=== PATIENT | male | born 1990 | race Two or more races ===

== ENCOUNTER 2020-05-29 12:24 | Outpatient (REF) | payer MEDICAID, SELFPAY | END 2020-05-29 12:25 | disposition home or self-care (01) | LOC: HO.LAB 12:24 | PROVIDERS: PCP Internal Medicine; Visit Provider Internal Medicine | DX: Z20.828 Contact with and (suspected) exposure to other viral communicable diseases (principal) | CPT/HCPCS: C9803; U0003 ==

== ENCOUNTER 2020-09-20 16:28 | Emergency (ER) | payer MEDICAID, SELFPAY ==
--- NOTE | ~2020-09-20 | XR_ITS ---
EXAMINATION: XR CHEST CLINICAL INFORMATION: Right chest pain with inspiration COMPARISON: 02/18/2020 TECHNIQUE: Frontal view of the chest was obtained. FINDINGS: No significant abnormality is noted involving the heart, lungs, mediastinum, bony thorax or soft tissues. XR/XR chest 1V IMPRESSION: No acute cardiopulmonary process.
[2020-09-20 16:49] VITALS: BP 128/77; PULSE 74; RESP 14; TEMP 36.9; O2SAT 97; BMI 23.6
--- NOTE | 2020-09-20 17:45 | ED.CHESTPAIN ---
HPI - Chest Pain General Chief Complaint: Chest Pain Stated Complaint: Rib pain Time Seen by Provider: 09/20/20 17:08 Source: patient Mode of arrival: ambulatory Limitations: no limitations History of Present Illness HPI narrative: Patient comes emergency room complaining of 2 days of sharp right-sided chest pain with inspirations. Patient is known to have asthma exacerbations, states he has been using his albuterol, no prednisone. Patient denies any recent injury, states that he has no pain with movement, only inspirations. Related Data Home Medications Medication Instructions Recorded Confirmed albuterol sulfate [ProAir HFA] 2 puff INHALATION Q4H 09/20/20 09/20/20 cetirizine 1 tab PO BEDTIME 09/20/20 09/20/20 clobetasol TOPICAL BID 09/20/20 epinephrine 1 IM NEEDED 09/20/20 fluticasone propionate 1 spray INTRANASAL DAILY 09/20/20 09/20/20 fluticasone propionate [Flovent 2 puff PO DAILY 09/20/20 09/20/20 Diskus] hydroxyzine HCl 1 tab PO TID 09/20/20 09/20/20 Allergies Allergy/AdvReac Type Severity Reaction Status Date / Time SEAFOOD Allergy Unknown ANAPHYLAXIS Uncoded 03/07/20 16:12 seafood Allergy Unknown anaphylaxis Uncoded 07/20/17 00:00 Review of Systems Review of Systems: Constitutional : No Weight loss, No Fever, No Chills, No Night Sweats, No Fatigue, No Malaise ENT/Mouth : No Hearing loss, No Ear Pain, No Nasal Congestion, No Sinus Pain, No Hoarseness, No sore throat, No Rhinorrhea, No Swallowing Difficulty Eyes: No Eye Pain, No Swelling, No Redness, No Foreign Body, No Discharge, No Vision Changes Cardiovascular : Sharp right-sided chest pain and intermittent, No SOB, No Dyspnea on Exertion, No Orthopnea, No Edema, No Palpitations Respiratory : No Cough, No Sputum, recent frequent asthma exacerbations, No Smoke Exposure, No Dyspnea Gastrointestinal : No Nausea, No Vomiting, No Diarrhea, No Constipation, No abdominal Pain, No Hematochezia, No Melena Genitourinary : no irregular bleeding, No Dysuria, No Urinary Frequency, No Hematuria, No Urinary Incontinence, No Urgency, No Flank Pain, No Urinary Flow Changes, No Hesitancy Musculoskeletal : No joint pain, No Myalgias, No Joint Swelling Skin : No Skin Lesions, No rash Neuro : No Weakness, No Numbness, No Paresthesias, No Loss of Consciousness, No Dizziness, No Headache Psych : No Anxiety/Panic, No Depression, No SI/HI/AH/VH, No Social Issues, Heme/Lymph: No Bruising, No Bleeding,No Lymphadenopathy Endocrine : No Polyuria, No Polydipsia, No Temperature Intolerance [facility] Past Medical History Medical History Asthma Hernia Social History Social History Smoked in Last 30 Days: No Use of substances other than those prescribed or required for medical reasons: No Advance Directives: No Advance Directives Information Provided: Yes Physical Exam Vital Signs: Vital Signs: Last Vital Signs Temp 97.8 F 09/20/20 19:27 Pulse 77 09/20/20 19:27 Resp 18 09/20/20 19:27 BP 121/82 09/20/20 19:27 Pulse Ox 99 09/20/20 19:27 Body Mass Index 23.6 Appearance: Alert. Oriented X3. No acute distress. Eyes: Pupils equal, round and reactive to light. ENT: Pharynx normal. Neck: Normal inspection. Neck supple. No lymph nodes noted. No crepitus CVS: Normal heart rate and rhythm. Pulses normal. Normal S1 and S2, no pain to palpation Respiratory: No respiratory distress. Breath sounds normal. No Wheezing. No rales Abdomen: Soft and nontender. No rigidity. No distention. good BS x4 Skin: Skin warm and dry. Normal skin color. Normal skin turgor. Extremities: No lower extremity edema. No lower extremity edema. No Lacerations. No Rash Neuro: Oriented X 3. No motor deficit. No sensory deficit. Moving all extermities. No slurred speech. Course Course Course Narrative: Patient feeling better after the IV Toradol. Patient's pain likely musculoskeletal. Heart score 0 and Wells score for PE 0 MDM - Chest Pain Lab Data Result diagrams: 09/20/20 17:44 09/20/20 17:45 Labs: Lab Results 09/20/20 09/20/20 09/20/20 Range/Units 17:44 17:45 17:45 WBC 10.5 (4.8-10.8) X10*3/uL RBC 5.25 (4.60-5.80) X10*6/uL Hgb 15.9 (14.0-18.0) g/dl Hct 44.2 (42-52) % MCV 84.2 (80-98) fL MCH 30.3 (27.0-33.0) pg MCHC 36.0 (31.0-36.0) g/dl RDW 12.2 (11.0-16.0) % Plt Count 323 (160-400) X10*3/uL MPV 8.9 L (9.4-12.4) fL Immature Gran % (Auto) 0.5 H (0.0-0.4) % Neut % (Auto) 63.7 (45-73) % Lymph % (Auto) 18.3 L (20-40) % Gordon % (Auto) 8.0 (2-11) % Eos % (Auto) 8.9 H (0-4) % Baso % (Auto) 0.6 (0-2) % Lymph # (Auto) 1.9 (1.2-4.9) X10*3/uL Gordon # (Auto) 0.8 (0.1-1.2) X10*3/uL Eos # (Auto) 0.9 H (0.0-0.4) X10*3/uL Baso # (Auto) 0.1 (0.0-0.2) X10*3/uL Abs Immat Gran (auto) 0.05 H (0.00-0.03) X10*3/uL Absolute Neuts (auto) 6.7 (2.0-8.3) X10*3/uL Absolute Nucleated RBC 0.000 (0.0-0.012) X10*3/uL Nucleated RBC % (auto) 0.0 (0.0-0.2) /100WBC D-Dimer < 200 NG/ML Sodium 138 (135-145) mmol/L Potassium 4.1 (3.3-5.1) mmol/L Chloride 104 (96-108) mmol/L Carbon Dioxide 27 (22-29) mmol/L Anion Gap 11 L (12-20) BUN 14 (9-16) mg/dL Creatinine 0.78 (0.5-1.4) mg/dL Estim Creat Clear Calc 140.9 Estimated GFR > 60 Random Glucose 84 (60-115) mg/dL Calcium 9.0 (8.4-10.2) mg/dL Troponin I High Sens (<3.5-35.0) ng/L 09/20/20 Range/Units 17:45 WBC (4.8-10.8) X10*3/uL RBC (4.60-5.80) X10*6/uL Hgb (14.0-18.0) g/dl Hct (42-52) % MCV (80-98) fL MCH (27.0-33.0) pg MCHC (31.0-36.0) g/dl RDW (11.0-16.0) % Plt Count (160-400) X10*3/uL MPV (9.4-12.4) fL Immature Gran % (Auto) (0.0-0.4) % Neut % (Auto) (45-73) % Lymph % (Auto) (20-40) % Gordon % (Auto) (2-11) % Eos % (Auto) (0-4) % Baso % (Auto) (0-2) % Lymph # (Auto) (1.2-4.9) X10*3/uL Gordon # (Auto) (0.1-1.2) X10*3/uL Eos # (Auto) (0.0-0.4) X10*3/uL Baso # (Auto) (0.0-0.2) X10*3/uL Abs Immat Gran (auto) (0.00-0.03) X10*3/uL Absolute Neuts (auto) (2.0-8.3) X10*3/uL Absolute Nucleated RBC (0.0-0.012) X10*3/uL Nucleated RBC % (auto) (0.0-0.2) /100WBC D-Dimer NG/ML Sodium (135-145) mmol/L Potassium (3.3-5.1) mmol/L Chloride (96-108) mmol/L Carbon Dioxide (22-29) mmol/L Anion Gap (12-20) BUN (9-16) mg/dL Creatinine (0.5-1.4) mg/dL Estim Creat Clear Calc Estimated GFR Random Glucose (60-115) mg/dL Calcium (8.4-10.2) mg/dL Troponin I High Sens < 3.5 (<3.5-35.0) ng/L Imaging Data Chest x-ray: Radiologist's impression: FINDINGS: No significant abnormality is noted involving the heart, lungs, mediastinum, bony thorax or soft tissues. XR/XR chest 1V IMPRESSION: No acute cardiopulmonary process. ECG Data ECG #1: Attestation: I personally reviewed and interpreted this ECG as follows: (Sinus rhythm, heart rate 73, no ST segment depression or elevation, no T-wave inversion.) Scores Heart Score History: -0- slightly suspicious ECG: -0- normal Age: -0- < or = 45 Risk factory: -0- no risk factors known Troponin: -0- < or = normal limit Score: 0 Risk: 1.7% Discharge Plan Discharge Clinical Impression: Atypical chest pain Patient Disposition: Home, Self-Care Instructions: Pleurisy (ED) Additional Instructions: You may use Tylenol or ibuprofen for the discomfort. Please follow-up with your primary care physician tomorrow. If you have any worsening or new symptoms, please return to the emergency room or call 911 Prescriptions: No Action cetirizine 10 mg tablet 1 tab PO BEDTIME RF: 0 hydroxyzine HCl 25 mg tablet 1 tab PO TID RF: 0 clobetasol 0.05 % ointment topical BID RF: 0 epinephrine 0.3 mg/0.3 mL auto-injector 1 IM NEEDED RF: 0 albuterol sulfate [ProAir HFA] 90 mcg/actuation HFA aerosol inhaler 2 puff inhalation Q4H RF: 0 Flovent Diskus 250 mcg/actuation blister with device 2 puff PO DAILY RF: 0 fluticasone propionate 50 mcg/actuation spray,suspension 1 spray intranasal DAILY RF: 0
[2020-09-20 18:03] LABS: MANUAL DIFF FLAG NO
[2020-09-20 18:06] LABS: Basophils Absolute Auto 0.1 X10*3/uL (0.0-0.2); Basophils Percent Auto 0.6 % (0-2); Eosinophils Absolute Auto 0.9 X10*3/uL (0.0-0.4); Eosinophils Percent Auto 8.9 % (0-4); Hematocrit 44.2 % (42-52); Hemoglobin 15.9 g/dl (14.0-18.0); Imm Gran Abs Auto 0.05 X10*3/uL (0.00-0.03); Imm Gran Pct Auto 0.5 % (0.0-0.4); Lymphocytes Absolute Auto 1.9 X10*3/uL (1.2-4.9); Lymphocytes Percent Auto 18.3 % (20-40); Mean Corpuscular Hemoglobin 30.3 pg (27.0-33.0); Mean Corpuscular Volume 84.2 fL (80-98); Mean Platelet Volume 8.9 fL (9.4-12.4); Monocytes Absolute Auto 0.8 X10*3/uL (0.1-1.2); Neutrophils Absolute Auto 6.7 X10*3/uL (2.0-8.3); Neutrophils Percent Auto 63.7 % (45-73); Platelet Count 323 X10*3/uL (160-400); Red Blood Count 5.25 X10*6/uL (4.60-5.80); Red Cell Distribution Width 12.2 % (11.0-16.0); White Blood Count 10.5 X10*3/uL (4.8-10.8)
[2020-09-20 18:22] LABS: D Dimer < 200 NG/ML
[2020-09-20 18:36] LABS: Anion Gap 11 (12-20); Blood Urea Nitrogen 14 mg/dL (9-16); Carbon Dioxide 27 mmol/L (22-29); Chloride 104 mmol/L (96-108); Creatinine Clr Calc Pharmacy 140.9; Estimated Glomerular Filt Rate > 60; Glucose Random 84 mg/dL (60-115); Potassium 4.1 mmol/L (3.3-5.1); Sodium 138 mmol/L (135-145)
[2020-09-20 18:39] LABS: Troponin-I High Sensitivity < 3.5 ng/L (<3.5-35.0)
[2020-09-20] MEDS: Ketorolac Tromethamine 30 MG/ML VIAL IVPUSH (19:05)
--- NOTE | 2020-09-20 19:09 | ECG_ITS ---
Test Reason : CHEST PAIN Blood Pressure : / mmHG Vent. Rate : 073 BPM Atrial Rate : 073 BPM P-R Int : 120 ms QRS Dur : 094 ms QT Int : 376 ms P-R-T Axes : 000 153 154 degrees QTc Int : 414 ms Possible limb lead reversal Normal sinus rhythm Right axis deviation Possible lateral infarct , age undetermined Abnormal ECG When compared with ECG of 12-OCT-2017 14:08, Vent. rate has decreased BY 36 BPM Borderline criteria for lateral infarct T wave inversion now evident in Lateral leads Please repeat ECG with correct lead positon Referred By: Minnie Rivera Electronically Signed By:Aaron Zelaya
[2020-09-20 19:27] VITALS: BP 121/82; PULSE 77; RESP 18; TEMP 36.6; O2SAT 99
== END 2020-09-20 20:08 | disposition home or self-care (01) ==
PROVIDERS: Emergency Provider Emergency Medicine; PCP Internal Medicine
DX: R07.89 Other chest pain (principal); J45.909 Unspecified asthma, uncomplicated; Z79.899 Other long term (current) drug therapy
CPT/HCPCS: 36415; 71045; 80048; 84484; 85025; 85379; 93005; 96374; 99284; J1885

== ENCOUNTER 2021-03-16 17:37 | Emergency (ER) | payer MEDICAID, SELFPAY ==
[2021-03-16 17:40] VITALS: BP 135/78; PULSE 95; RESP 18; TEMP 36.7; O2SAT 95; BMI 23.2
--- NOTE | 2021-03-16 18:53 | ED_ITS ---
HPI - Back Pain/Injury General Chief Complaint: Back Pain/Injury Stated Complaint: BACK PAIN Time Seen by Provider: 03/16/21 18:42 Source: patient History of Present Illness HPI Narrative: Patient states he has been having pain in his low back mostly on the right side for the past 4-5 days. He has had similar symptoms intermittently in the past which resolved spontaneously. He was referred to Physical therapy who we saw a few days ago. He was prescribed stretching and strength exercises. The pain is in his low back and does not radiate. No bowel or bladder symptoms. No fevers or chills. No specific causative factors such as slipped falls or trauma. 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 He is here today because the pain continues. He has been taking acetaminophen without much improvement. Related Data Home Medications Medication Instructions Recorded Confirmed albuterol sulfate 90 mcg/actuation 2 puff INHALATION Q4H 09/20/20 09/20/20 aerosol inhaler (ProAir HFA) cetirizine 10 mg tablet 1 tab PO BEDTIME 09/20/20 09/20/20 clobetasol 0.05 % topical ointment TOPICAL BID 09/20/20 epinephrine 0.3 mg/0.3 mL 1 IM NEEDED 09/20/20 injection, auto-injector fluticasone propionate 250 2 puff PO DAILY 09/20/20 09/20/20 mcg/actuation blister powder for inhalation (Flovent Diskus) fluticasone propionate 50 1 spray INTRANASAL DAILY 09/20/20 09/20/20 mcg/actuation nasal spray,suspension hydroxyzine HCl 25 mg tablet 1 tab PO TID 09/20/20 09/20/20 Previous Rx's Medication Instructions Recorded cyclobenzaprine 10 mg tablet 10 mg PO TID #20 tab 03/16/21 ibuprofen 800 mg tablet 800 mg PO TID #30 tab 03/16/21 Allergies Allergy/AdvReac Type Severity Reaction Status Date / Time SEAFOOD Allergy Unknown ANAPHYLAXIS Uncoded 03/07/20 16:12 seafood Allergy Unknown anaphylaxis Uncoded 07/20/17 00:00 Review of Systems Constitutional: Comments: No fevers or chills Gastrointestinal: Comments: No abdominal pain Genitourinary: Comments: No urinary retention or incontinence symptoms Musculoskeletal: Comments: Back pain but no lower extremity pain Neurologic: Comments: No weakness numbness or paresthesias [facility] Past Medical History Medical History Asthma Hernia Social History Social History Advance Directives: No Advance Directives Information Provided: Yes Physical Exam Vital Signs: Vital Signs: Last Vital Signs Temp 98.0 F 03/16/21 17:40 Pulse 95 03/16/21 17:40 Resp 18 03/16/21 17:40 BP 135/78 03/16/21 17:40 Pulse Ox 95 03/16/21 17:40 Body Mass Index 23.2 Const: Other: Awake alert and in no acute distress. Resp: Other: No respiratory distress GI: Other: Soft nontender Back/Spine/Pelvis: Other: Mild discomfort along upper lumbar spine and paraspinous muscles. No significant focal or point tenderness. No crepitus or deformities. No thoracic spine tenderness. Skin: Other: Diffuse mild eczematous type rash but no other acute abnormalitie s Neuro: Other: Ambulating without difficulty Course Course Course Narrative: Back pain without neurologic compromise or radicular symptoms. Pain is consistent with musculoskeletal origin. Currently in physical therapy. I will add ibuprofen and Flexeril Discharge Plan Discharge Clinical Impression: Strain of lumbar region Patient Disposition: Home, Self-Care Instructions: Low Back Strain (ED), Lower Back Exercises (ED) Additional Instructions: Continue with physical therapy because in the long run this is the best treatment for her back. I will prescribe ibuprofen for pain and inflammation. Flexeril for spasm. Do not take the Flexeril if you need to drive or operate machinery. Prescriptions: New ibuprofen 800 mg tablet 800 mg PO TID Qty: 30 RF: 0 cyclobenzaprine 10 mg tablet 10 mg PO TID Qty: 20 RF: 0 No Action cetirizine 10 mg tablet 1 tab PO BEDTIME RF: 0 hydroxyzine HCl 25 mg tablet 1 tab PO TID RF: 0 clobetasol 0.05 % ointment topical BID RF: 0 epinephrine 0.3 mg/0.3 mL auto-injector 1 IM NEEDED RF: 0 albuterol sulfate [ProAir HFA] 90 mcg/actuation HFA aerosol inhaler 2 puff inhalation Q4H RF: 0 Flovent Diskus 250 mcg/actuation blister with device 2 puff PO DAILY RF: 0 fluticasone propionate 50 mcg/actuation spray,suspension 1 spray intranasal DAILY RF: 0
[2021-03-16] MEDS: Ibuprofen 800 MG TABLET PO (19:04)
== END 2021-03-16 19:06 | disposition home or self-care (01) ==
PROVIDERS: Emergency Provider Emergency Medicine; PCP Internal Medicine
DX: M54.5 Low back pain (principal); Z79.899 Other long term (current) drug therapy
CPT/HCPCS: 99283

== ENCOUNTER 2021-03-26 11:00 | Outpatient (RCR) | payer MEDICAID, SELFPAY | END 2021-10-08 08:12 | disposition home or self-care (01) | LOC: HO.PTCHIC 11:00 | PROVIDERS: PCP Internal Medicine; Visit Provider Internal Medicine | DX: M54.9 Dorsalgia, unspecified (principal) | CPT/HCPCS: 97110; 97140; 97161 ==

== ENCOUNTER 2021-10-23 20:31 | Emergency (ER) | payer MEDICAID, SELFPAY ==
--- NOTE | ~2021-10-23 | XR_ITS ---
EXAMINATION: XR CHEST CLINICAL INFORMATION: Right-sided pain. Shortness of breath. COMPARISON: Chest x-ray 09/20/2020, 11/14/2018 TECHNIQUE: 2 views of the chest were obtained. FINDINGS: No significant abnormality is noted involving the heart, lungs, mediastinum, bony thorax or soft tissues. XR/XR chest 2V IMPRESSION: Unremarkable examination.
[2021-10-23 20:43] VITALS: BP 119/76; PULSE 93; RESP 16; TEMP 37; O2SAT 97; BMI 27.2
--- NOTE | 2021-10-23 21:20 | ED_ITS ---
HPI - SOB/Dyspnea General Chief Complaint: Dyspnea Stated Complaint: SOB Time Seen by Provider: 10/23/21 21:20 Source: patient Mode of arrival: ambulatory Limitations: no limitations History of Present Illness HPI Narrative: Patient history of asthma walked home last night started having shortness of breath with right-sided chest pain when taking deep breath no cough no fever no chills no history of trauma Related Data Home Medications Medication Instructions Recorded Confirmed albuterol sulfate 90 mcg/actuation 2 puff INHALATION Q4H 09/20/20 09/20/20 aerosol inhaler (ProAir HFA) cetirizine 10 mg tablet 1 tab PO BEDTIME 09/20/20 09/20/20 clobetasol 0.05 % topical ointment TOPICAL BID 09/20/20 epinephrine 0.3 mg/0.3 mL 1 IM NEEDED 09/20/20 injection, auto-injector fluticasone propionate 250 2 puff PO DAILY 09/20/20 09/20/20 mcg/actuation blister powder for inhalation (Flovent Diskus) fluticasone propionate 50 1 spray INTRANASAL DAILY 09/20/20 09/20/20 mcg/actuation nasal spray,suspension hydroxyzine HCl 25 mg tablet 1 tab PO TID 09/20/20 09/20/20 Previous Rx's Medication Instructions Recorded cyclobenzaprine 10 mg tablet 10 mg PO TID #20 tab 03/16/21 ibuprofen 800 mg tablet 800 mg PO TID #30 tab 03/16/21 ibuprofen 600 mg tablet 600 mg PO Q6H PRN #20 tab 10/23/21 prednisone 20 mg tablet 40 mg PO DAILY #10 tab 10/23/21 Allergies Allergy/AdvReac Type Severity Reaction Status Date / Time SEAFOOD Allergy Unknown ANAPHYLAXIS Uncoded 03/07/20 16:12 seafood Allergy Unknown anaphylaxis Uncoded 07/20/17 00:00 Review of Systems Review of Systems: Yes all other systems are reviewed and are negative PMFSH Past Medical History Medical History Asthma Hernia Social History Social History Advance Directives: No Physical Exam Vital Signs: Vital Signs: Last Vital Signs Temp 98.6 F 10/23/21 20:43 Pulse 93 10/23/21 20:43 Resp 16 10/23/21 20:43 BP 119/76 10/23/21 20:43 Pulse Ox 97 10/23/21 20:43 BMI result Body Mass Index 27.2 Appearance: Alert. Oriented X3. No acute distress. ENT: Pharynx normal. Oral Mucosa moist Neck: Normal inspection. Neck supple. CVS: Normal heart rate and rhythm. Pulses normal. Respiratory: No respiratory distress. Equal air entry bilateral, no wheezing /rales/rhonchi tender to palpation right lower rib Abdomen: Soft and nontender. Bowel sounds are present, no mass palpable, no CVA tenderness Skin: Skin warm and dry. Normal skin color. Normal skin turgor. Extremities: No lower extremity edema. No calf tenderness Neuro: Oriented X 3. MDM - SOB/Dyspnea MDM Narrative Medical decision making narrative: Patient lungs clear to auscultation saturating 97% at room air chest x-ray negative for pneumothorax or pneumonia pain likely muscular low risk for PE tender to palpation right lower ribs likely muscular pain Lab Data Attestation: I reviewed the patient's lab results. Labs: Lab Results 10/23/21 10/23/21 Range/Units 21:17 21:17 COVID-19 (CONSTANTINE) Negative (Negative) COVID-19 Clin Com See Note Influenza Type A (ASHA) Negative (Negative) Influenza Type B (ASHA) Negative (Negative) Influenza A & B Note See Note Discharge Plan Discharge Clinical Impression: Asthma with exacerbation Patient Disposition: Home, Self-Care Instructions: Asthma (ED) Additional Instructions: Use your albuterol inhaler every 4-6 hours as needed Take prednisone as prescribed Ibuprofen for pain Report to ER/PCP if not better Prescriptions: New prednisone 20 mg tablet 40 mg PO DAILY Qty: 10 0RF ibuprofen 600 mg tablet 600 mg PO Q6H PRN (Reason: pain) Qty: 20 0RF No Action cetirizine 10 mg tablet 1 tab PO BEDTIME 0RF hydroxyzine HCl 25 mg tablet 1 tab PO TID 0RF clobetasol 0.05 % ointment topical BID 0RF epinephrine 0.3 mg/0.3 mL auto-injector 1 IM NEEDED 0RF albuterol sulfate [ProAir HFA] 90 mcg/actuation HFA aerosol inhaler 2 puff inhalation Q4H 0RF Flovent Diskus 250 mcg/actuation blister with device 2 puff PO DAILY 0RF fluticasone propionate 50 mcg/actuation spray,suspension 1 spray intranasal DAILY 0RF ibuprofen 800 mg tablet 800 mg PO TID Qty: 30 0RF cyclobenzaprine 10 mg tablet 10 mg PO TID Qty: 20 0RF Rx Instructions: Flexeril will make you drowsy. Do not take it and drive. Do not take it and consume alcohol or other sedatives Interventions: ED Discharge Assessment Last Done: 10/23/21 22:12 Discharge Date/Time: 10/23/21 22:12
[2021-10-23 21:39] LABS: COVID-19 Test Negative (Negative); IDNOW Serial# 16C4AD1C; Influenza A Negative (Negative); Influenza B2 Negative (Negative)
[2021-10-23] MEDS: predniSONE 20 MG TABLET 40 MG PO (22:10)
[2021-10-23] MEDS: Ibuprofen 600 MG TABLET PO (22:10)
== END 2021-10-23 22:12 | disposition home or self-care (01) ==
PROVIDERS: Emergency Provider Internal Medicine; PCP Internal Medicine
DX: J45.901 Unspecified asthma with (acute) exacerbation (principal); R06.02 Shortness of breath; Z20.822 Contact with and (suspected) exposure to COVID-19; Z79.899 Other long term (current) drug therapy
CPT/HCPCS: 71046; 87502; 87635; 99283

== ENCOUNTER 2022-06-25 13:12 | Outpatient (REF) | payer MEDICAID, SELFPAY ==
--- NOTE | ~2022-06-25 | XR_ITS ---
EXAMINATION: XR THORACIC SPINE XR LUMBOSACRAL SPINE CLINICAL INFORMATION: Low back pain and mid back pain. COMPARISON: None TECHNIQUE: Thoracic spine 3 views and Lumbosacral spine 5 views FINDINGS: Thoracic spine: Mild right convex curvature of the thoracic spine. Mild to moderate thoracic kyphosis. Mild disc narrowing is seen in the mid thoracic spine. Early endplate osteophyte formation. No acute osseous abnormality is seen. Lumbosacral spine: Mild left convex curvature of the lumbar spine. Vertebral body height is maintained. Mild to moderate disc space narrowing and anterior osteophyte formation at L1-L2. The remaining disc spaces are maintained. No significant facet arthropathy. The sacroiliac joints are unremarkable. XR/XR lumbar spine 4V min IMPRESSION: Mild curvature of the thoracolumbar spine with mild to moderate disc space narrowing at L1-L2. No acute findings are seen.
--- NOTE | ~2022-06-25 | XR_ITS ---
EXAMINATION: XR THORACIC SPINE XR LUMBOSACRAL SPINE CLINICAL INFORMATION: Low back pain and mid back pain. COMPARISON: None TECHNIQUE: Thoracic spine 3 views and Lumbosacral spine 5 views FINDINGS: Thoracic spine: Mild right convex curvature of the thoracic spine. Mild to moderate thoracic kyphosis. Mild disc narrowing is seen in the mid thoracic spine. Early endplate osteophyte formation. No acute osseous abnormality is seen. Lumbosacral spine: Mild left convex curvature of the lumbar spine. Vertebral body height is maintained. Mild to moderate disc space narrowing and anterior osteophyte formation at L1-L2. The remaining disc spaces are maintained. No significant facet arthropathy. The sacroiliac joints are unremarkable. XR/XR thoracic spine 3V IMPRESSION: Mild curvature of the thoracolumbar spine with mild to moderate disc space narrowing at L1-L2. No acute findings are seen.
== END 2022-06-25 13:13 | disposition home or self-care (01) ==
LOC: HO.XRAY 13:12
PROVIDERS: Visit Provider Internal Medicine
DX: M62.830 Muscle spasm of back (principal); M54.9 Dorsalgia, unspecified
CPT/HCPCS: 72072; 72110

== ENCOUNTER 2022-10-01 08:00 | Outpatient (RCR) | payer MEDICAID, SELFPAY ==
--- NOTE | 2022-09-10 09:19 | MHC.PT.EP ---
[facility] [place] Office [place] Office [place] Office [address] Davion Menchaca [address] [phone] F: [phone] F: [phone] F: [phone] F: [phone] Physical Therapy Plan of Care Date of Evaluation: Date of Surgery: N/A Diagnosis: Assessment: pt is a 32 y/o male presenting to physical therapy w/ referring diagnosis of arthritis, lumbar spine. Impairments include pain, decreased range of motion, decreased strength, impaired functional mobility, impaired postural awareness, and altered ambulation mechanics. pt is a good candidate for skilled PT due to age, potential remediation of impairments, typical disease/condition progression and prognosis, comorbidities, and motivation. pt would benefit from skilled PT intervention to provide a tailored strengthening and stretching exercise program, functional training, gait training, postural re-training, neuromuscular re-education, modalities as needed for pain, equipment safety demonstration. Frequency and Duration: The patient will be seen 2x/wk for 3 wks Short Term Goals: pt will be I w/ HEP to promote self-management of condition. pt will demo proper sitting posture w/ lumbar roll to promote neutral spine w/ seated ADLs. Dental Receptionist Goals: pt will report a statistically significant improvement in self-reported outcome measure, Aaron, to promote return to PLOF. pt will demo proper lifting mechanics from floor to chest to promote neutral spine w/ lifting. Treatment Plan: Modalities to reduce pain, spasms and effusion. Manual therapy to restore motion and function. Therapeutic exercise to improve strength and flexibility. Neuromuscular re-education for posture and balance. Therapeutic activities to return to functional activities of daily living. Electronically signed by: Kaela Fischer PT, DPT Please sign and return to therapist. Thank you for your referral.
--- NOTE | 2022-10-15 08:37 | MHC.PT.EP ---
[facility] [place] Office [place] Office [place] Office [address] Davion Menchaca [address] [phone] F: [phone] F: [phone] F: [phone] F: [phone] Physical Therapy Plan of Care Date of Evaluation: Date of Surgery: N/A Diagnosis: arthritis, lumbar spine Assessment: pt is a 32 y/o male presenting to physical therapy w/ referring diagnosis of arthritis, lumbar spine. Impairments include pain, decreased range of motion, decreased strength, impaired functional mobility, impaired postural awareness, and altered ambulation mechanics. pt is a good candidate for skilled PT due to age, potential remediation of impairments, typical disease/condition progression and prognosis, comorbidities, and motivation. pt would benefit from skilled PT intervention to provide a tailored strengthening and stretching exercise program, functional training, gait training, postural re-training, neuromuscular re-education, modalities as needed for pain, equipment safety demonstration. 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 pt will demo proper lifting mechanics from floor to chest to promote neutral spine w/ lifting. Treatment Plan: Modalities to reduce pain, spasms and effusion. Manual therapy to restore motion and function. Therapeutic exercise to improve strength and flexibility. Neuromuscular re-education for posture and balance. Therapeutic activities to return to functional activities of daily living. Electronically signed by: Kaela Fischer PT, DPT Please sign and return to therapist. Thank you for your referral.
== END 2022-10-15 08:38 | disposition home or self-care (01) ==
LOC: HO.PT 08:00
PROVIDERS: PCP Internal Medicine; Visit Provider Internal Medicine
DX: M47.816 Spondylosis without myelopathy or radiculopathy, lumbar region (principal)
CPT/HCPCS: 97110; 97161

== ENCOUNTER 2022-10-28 11:33 | Outpatient (REF) | payer MEDICAID, SELFPAY ==
--- NOTE | ~2022-10-28 | XR_ITS ---
EXAMINATION: XR SCOLIOSIS CLINICAL INFORMATION: Back pain. COMPARISON: Thoracic spine and lumbar spine radiographs 06/25/2022 are reviewed. TECHNIQUE: A single view of the thoracolumbar spine is obtained. FINDINGS: There are no intrinsic vertebral anomalies. There is spinal curvature as follows: Right convex thoracic curvature of 9 degrees, apex at T9. Left convex lumbar curvature of 11 degrees, apex at L3-L4. There is a mild iliac crest height discrepancy with the right side higher by approximately 1.2 cm. Risser 5. XR/XR scoliosis survey IMPRESSION: Mild spinal curvature as described.
== END 2022-10-28 11:34 | disposition home or self-care (01) ==
LOC: HO.XRAY 11:33
PROVIDERS: Visit Provider Registered Nurse
DX: M54.9 Dorsalgia, unspecified (principal)
CPT/HCPCS: 72082

== ENCOUNTER 2023-01-03 10:34 | Emergency (ER) | payer MEDICAID, SELFPAY ==
[2023-01-03 10:36] VITALS: BP 154/83; PULSE 73; RESP 16; TEMP 36.2; O2SAT 100; BMI 24.2
[2023-01-03 10:47] LABS: MANUAL DIFF FLAG NO
[2023-01-03 10:48] LABS: Basophils Absolute Auto 0.1 X10*3/uL (0.0-0.2); Basophils Percent Auto 0.4 % (0-2); Eosinophils Absolute Auto 0.2 X10*3/uL (0.0-0.4); Eosinophils Percent Auto 1.1 % (0-4); Hematocrit 45.6 % (42.0-52.0); Hemoglobin 15.9 g/dl (14.0-18.0); Imm Gran Abs Auto 0.08 X10*3/uL (0.00-0.03); Imm Gran Pct Auto 0.6 % (0.0-0.4); Lymphocytes Percent Auto 7.1 % (20-40); Mean Corpuscular HGB Conc 34.9 g/dl (31.0-36.0); Mean Corpuscular Volume 83.1 fL (80.0-98.0); Mean Platelet Volume 8.4 fL (9.4-12.4); Monocytes Absolute Auto 0.5 X10*3/uL (0.1-1.2); Monocytes Percent Auto 3.5 % (2-11); Neutrophils Absolute Auto 12.3 x10*3/uL (2.0-8.3); Neutrophils Percent Auto 87.3 % (45-73); Platelet Count 316 X10*3/uL (160-400); Red Blood Count 5.49 X10*6/uL (4.60-5.80); Red Cell Distribution Width 12.1 % (11.0-16.0); White Blood Count 14.1 X10*3/uL (4.8-10.8)
--- NOTE | 2023-01-03 10:55 | ED.ABDPAIN ---
HPI - Abdominal Pain General Chief Complaint: Abdominal Pain Stated Complaint: abd pain Time Seen by Provider: 01/03/23 10:46 Source: patient Mode of arrival: ambulatory Limitations: no limitations History of Present Illness HPI narrative: 32 yo male with history of asthma, bilateral inguinal hernia repair (as a child) here with complaints of multiple episodes of NBNB vomiting, upper abdominal discomfort, headache with waking. Last night he smoked marijuana and had a beer. No diarrhea, constipation, urinary symptoms, fevers, chills. No black or bloody stools. Related Data Home Medications Medication Instructions Recorded Confirmed albuterol sulfate 90 mcg/actuation 2 puff inhalation Q4H 09/20/20 09/20/20 aerosol inhaler (ProAir HFA) cetirizine 10 mg tablet 1 tab PO BEDTIME 09/20/20 09/20/20 clobetasol 0.05 % topical ointment topical BID 09/20/20 epinephrine 0.3 mg/0.3 mL 1 IM NEEDED 09/20/20 injection, auto-injector fluticasone propionate 250 2 puff PO DAILY 09/20/20 09/20/20 mcg/actuation blister powder for inhalation (Flovent Diskus) fluticasone propionate 50 1 spray intranasal DAILY 09/20/20 09/20/20 mcg/actuation nasal spray,suspension hydroxyzine HCl 25 mg tablet 1 tab PO TID 09/20/20 09/20/20 Previous Rx's Medication Instructions Recorded cyclobenzaprine 10 mg tablet 10 mg PO TID #20 tabs 03/16/21 ibuprofen 800 mg tablet 800 mg PO TID #30 tabs 03/16/21 ibuprofen 600 mg tablet 600 mg PO Q6H PRN pain #20 tabs 10/23/21 prednisone 20 mg tablet 40 mg PO DAILY #10 tabs 10/23/21 ondansetron 4 mg disintegrating 4 mg PO Q6H PRN nausea and 01/03/23 tablet vomiting #15 tabs Allergies Allergy/AdvReac Type Severity Reaction Status Date / Time SEAFOOD Allergy Unknown ANAPHYLAXIS Uncoded 03/07/20 16:12 seafood Allergy Unknown anaphylaxis Uncoded 07/20/17 00:00 Review of Systems Review of Systems Yes all other systems are reviewed and are negative Constitutional: Reports no additional constitutional complaints, Denies body ache(s), Denies chills, Denies fever(s), Denies headache(s) and Denies weakness Eyes: Reports no additional eye complaints and Denies change in vision Reports system reviewed and no additional complaints, except as documented, Denies dizziness, Denies headache(s), Denies nasal congestion, Denies nasal discharge and Denies neck pain Cardiovascular: Reports no additional cardiovascular complaints, Denies chest pain, Denies leg edema and Denies dyspnea Respiratory: Reports no additional respiratory complaints, Denies cough and Denies dyspnea Gastrointestinal: Reports no additional gastrointestinal complaints, Reports abdominal pain, Denies hematochezia, Denies diarrhea, Reports nausea, Reports vomiting and Denies hematemesis Genitourinary: Denies urinary incontinence Musculoskeletal: Reports no additional musculoskeletal complaints, Denies back pain, Denies arthralgias, Denies joint swelling, Denies neck pain, Denies numbness and Denies tingling Skin/Breast: Reports system reviewed and no additional complaints, except as docu and Denies rash Reports system reviewed and no additional complaints, except as documented, Denies dizziness, Denies headache(s), Denies numbness, Denies tingling and Denies weakness [facility] Past Medical History Attestation statement: The following information was validated with the patient. Source: old records reviewed and nursing notes reviewed Medical History Asthma Hernia Social History Social History Alcohol intake: current Alcohol intake frequency: a few times a month Smoked in Last 30 Days: No Use of substances other than those prescribed or required for medical reasons: Yes Substance Use Frequency: Daily Advance Directives: No Advance Directives Information Provided: No Physical Exam ED Vital Signs: Vital Signs - 24 hr 01/03/23 10:36 01/03/23 11:08 01/03/23 13:07 Temperature 97.1 F 97.8 F 98.2 F Pulse Rate 73 76 68 Respiratory Rate 16 12 13 Blood Pressure 154/83 H 133/74 114/88 Pulse Oximetry 100 100 98 Oxygen Delivery Method Room Air Room Air Room Air BMI result Body Mass Index 24.2 Const General: cooperative, healthy appearing, comfortable and no acute distress Orientation/consciousness: patient oriented x3 Limitations: no limitations HENMT Head: Yes normal to inspection Ears: hearing grossly normal bilaterally Eyes General: appearance normal, both eyes and all related structures Pupils: Equal, round and reactive pupils present Neck Neck: Yes normal visual inspection and Yes full ROM Chest Chest palpation & inspection: normal inspection of the chest Resp Effort & Inspection: normal respiratory effort Auscultation: clear to auscultation bilaterally Cardio Rate: regular rate Rhythm: regular rhythm Peripheral pulses: Peripheral pulses 2+ throughout GI Inspection: Yes normal to inspection Palpation (GI): Soft to palpation and nontender Auscultation: normal bowel sounds General: Yes no CVA tenderness Back/Spine/Pelvis Back: no CVA tenderness Skin General skin exam: no rashes or lesions noted Neuro General: patient oriented x3 and moves all extremities Cranial nerves: Yes Equal, round and reactive pupils present Cognition (Neuro): normal cognition Gait exam (Neuro): Normal gait present Extrem General: Yes normal to inspection, Yes no pedal edema and Yes no calf tenderness Course Course Course Narrative: Labs show mild leukocytosis which is likely secondary to vomiting. Additional labs are unremarkable. Patient is concerned that the marijuana he smokes yesterday was laced. Requesting drug screen which I will add on. His abdomen is feeling improved he is drinking alan bernie with no additional vomiting episodes. He can be discharged home with p.r.n. Zofran and recommendations to return for any worsening signs or symptoms. Medical Decision Making Medical Decision Making [facility] Narrative: 32yo male here with complaints of upper abdominal pain, vomiting, headache with waking. No focal abdominal pain on exam. +actively vomiting. Will check labs, UA, IVF, antiemetic, PPI Differential Diagnosis Differential Diagnoses: The differential diagnosis associated with the presentation includes gastritis, gerd, gastroenteritis low concern for acute appendicitis Lab Data [facility] Lab Attestation statement: I reviewed the patient's lab results. 01/03/23 10:43 01/03/23 10:43 Labs: Lab Results 01/03/23 01/03/23 01/03/23 Range/Units 10:43 10:43 13:47 WBC 14.1 H (4.8-10.8) X10*3/uL RBC 5.49 (4.60-5.80) X10*6/uL Hgb 15.9 (14.0-18.0) g/dl Hct 45.6 (42.0-52.0) % MCV 83.1 (80.0-98.0) fL MCH 29.0 (27.0-33.0) pg MCHC 34.9 (31.0-36.0) g/dl RDW 12.1 (11.0-16.0) % Plt Count 316 (160-400) X10*3/uL MPV 8.4 L (9.4-12.4) fL Immature Gran % (Auto) 0.6 H (0.0-0.4) % Neut % (Auto) 87.3 H (45-73) % Lymph % (Auto) 7.1 L (20-40) % Barry % (Auto) 3.5 (2-11) % Eos % (Auto) 1.1 (0-4) % Baso % (Auto) 0.4 (0-2) % Lymph # (Auto) 1.0 L (1.2-4.9) X10*3/uL Barry # (Auto) 0.5 (0.1-1.2) X10*3/uL Eos # (Auto) 0.2 (0.0-0.4) X10*3/uL Baso # (Auto) 0.1 (0.0-0.2) X10*3/uL Abs Immat Gran (auto) 0.08 H (0.00-0.03) X10*3/uL Absolute Neuts (auto) 12.3 H (2.0-8.3) x10*3/uL Absolute Nucleated RBC 0.000 (0.0-0.012) X10*3/uL Nucleated RBC % (auto) 0.0 (0.0-0.2) /100WBC Sodium 140 (135-145) mmol/L Potassium 3.9 (3.3-5.1) mmol/L Chloride 106 (96-108) mmol/L Carbon Dioxide 26 (22-29) mmol/L Anion Gap 12 (12-20) BUN 14 (9-16) mg/dL Creatinine 0.91 (0.5-1.4) mg/dL Estim Creat Clear Calc 114.8 Estimated GFR > 60 Random Glucose 122 H (60-115) mg/dL Calcium 9.4 (8.4-10.2) mg/dL Total Bilirubin 0.5 (0.0-1.0) mg/dL Direct Bilirubin 0.2 (0.0-0.5) mg/dL AST 21 (5-37) U/L ALT 20 (0-40) U/L Alkaline Phosphatase 58 (39-117) U/L Total Protein 7.2 (6.5-8.0) g/dL Albumin 4.1 (3.5-5.0) g/dL Lipase 17 (8-78) U/L Urine Opiates Screen Not Detected (Not Detect) Urine Fentanyl Screen Not Detected (Not Detect) Ur Barbiturates Screen Not Detected (Not Detect) Ur Phencyclidine Scrn Not Detected (Not Detect) Ur Amphetamines Screen Not Detected (Not Detect) U Benzodiazepines Scrn Not Detected (Not Detect) Urine Cocaine Screen Not Detected (Not Detect) U Marijuana (THC) Screen POSITIVE H (Not Detect) Medications Administered Discontinued Medications Generic Name Dose Route Start Last Admin Trade Name Freq PRN Reason Stop Dose Admin Famotidine 20 mg 01/03/23 10:54 01/03/23 11:21 Famotidine/Pf 20 Mg/2 Ml Vial IVPUSH 01/03/23 10:55 20 mg ONCE ONE Administration Sodium Chloride 1,000 mls @ 999 mls/hr 01/03/23 10:54 01/03/23 12:30 Ns IV 01/03/23 11:54 Infused .Q1H1M STA Infusion Ondansetron HCl 4 mg 01/03/23 10:54 01/03/23 11:21 Ondansetron Hcl 4 Mg/2 Ml Vial IVPUSH 01/03/23 10:55 4 mg ONCE ONE Administration Discharge Plan Discharge Clinical Impression: Abdominal pain Patient Disposition: Home, Self-Care Instructions: Abdominal Pain (ED) Prescriptions: New ondansetron 4 mg tablet,disintegrating 4 mg PO Q6H PRN (Reason: nausea and vomiting) Qty: 15 0RF No Action cetirizine 10 mg tablet 1 tab PO BEDTIME hydroxyzine HCl 25 mg tablet 1 tab PO TID clobetasol 0.05 % ointment topical BID epinephrine 0.3 mg/0.3 mL auto-injector 1 IM NEEDED albuterol sulfate [ProAir HFA] 90 mcg/actuation HFA aerosol inhaler 2 puff inhalation Q4H Flovent Diskus 250 mcg/actuation blister with device 2 puff PO DAILY fluticasone propionate 50 mcg/actuation spray,suspension 1 spray intranasal DAILY ibuprofen 800 mg tablet 800 mg PO TID Qty: 30 0RF cyclobenzaprine 10 mg tablet 10 mg PO TID Qty: 20 0RF Rx Instructions: Flexeril will make you drowsy. Do not take it and drive. Do not take it and consume alcohol or other sedatives prednisone 20 mg tablet 40 mg PO DAILY Qty: 10 0RF ibuprofen 600 mg tablet 600 mg PO Q6H PRN (Reason: pain) Qty: 20 0RF Referrals: Tammi Ledezma, [employer]ING MACHINE SET UP OPERATOR [Primary Care Provider] - 1 week Interventions: ED Discharge Assessment Last Done: 01/03/23 14:15 Discharge Date/Time: 01/03/23 14:16
[2023-01-03 11:05] LABS: Alanine Aminotransferase 20 U/L (0-40); Albumin Level 4.1 g/dL (3.5-5.0); Alkaline Phosphatase 58 U/L (39-117); Anion Gap 12 (12-20); Aspartate Amino Transferase 21 U/L (5-37); Bilirubin Direct 0.2 mg/dL (0.0-0.5); Bilirubin Total 0.5 mg/dL (0.0-1.0); Blood Urea Nitrogen 14 mg/dL (9-16); Calcium 9.4 mg/dL (8.4-10.2); Carbon Dioxide 26 mmol/L (22-29); Chloride 106 mmol/L (96-108); Creatinine Clr Calc Pharmacy 114.8; Estimated Glomerular Filt Rate > 60; Glucose Random 122 mg/dL (60-115); Lipase 17 U/L (8-78); Potassium 3.9 mmol/L (3.3-5.1); Sodium 140 mmol/L (135-145); Total Protein 7.2 g/dL (6.5-8.0)
[2023-01-03 11:08] VITALS: BP 133/74; PULSE 76; RESP 12; TEMP 36.6; O2SAT 100
--- NOTE | 2023-01-03 11:13 | PC.NURSE ---
placing iv for meds/fluids. calm, cooperative. no distress noted. reports nausea/abd discomfort/fullness- denies pain
[2023-01-03] MEDS: 0.9 % Sodium Chloride 1,000 ML 999 ML IV (11:21)
[2023-01-03] MEDS: Famotidine/PF 20 MG/2 ML VIAL IVPUSH (11:21)
[2023-01-03] MEDS: ondansetron HCL 4 MG/2 ML VIAL IVPUSH (11:21)
--- NOTE | 2023-01-03 11:35 | PC.NURSE ---
pt on way to [facility]. calm, coop. no distress.
[2023-01-03 13:07] VITALS: BP 114/88; PULSE 68; RESP 13; TEMP 36.8; O2SAT 98
[2023-01-03 14:04] LABS: Amphetamine Screen Urine Not Detected (Not Detect); Barbiturates, Urine Not Detected (Not Detect); Benzodiazepines Screen Urine Not Detected (Not Detect); Cannabinoid Screen Urine POSITIVE (Not Detect); Cocaine Screen Urine Not Detected (Not Detect); Fentanyl, urine Not Detected (Not Detect); Opiate Screen Urine Not Detected (Not Detect); Phencyclidine Screen Urine Not Detected (Not Detect)
== END 2023-01-03 14:16 | disposition home or self-care (01) ==
PROVIDERS: Nurse Practitioner Family; Emergency Provider Student in an Organized Health Care Education/Training Program; PCP Registered Nurse
DX: R10.9 Unspecified abdominal pain (principal); R51.9 Headache, unspecified; F12.90 Cannabis use, unspecified, uncomplicated; Z79.899 Other long term (current) drug therapy
CPT/HCPCS: 36415; 80048; 80076; 80307; 83690; 85025; 96361; 96374; 96375; 99284; J2405

== ENCOUNTER → 2023-02-09 16:14 | Outpatient (REF) | payer MEDICAID, SELFPAY | LOC: HO.SL 16:14 | PROVIDERS: PCP Registered Nurse; Visit Provider Registered Nurse | DX: G47.19 Other hypersomnia (principal); R06.83 Snoring | CPT/HCPCS: 95806 ==

== ENCOUNTER → 2023-02-09 19:00 | Outpatient (BNV) | payer MEDICAID, SELFPAY | PROVIDERS: PCP Registered Nurse; Visit Provider Internal Medicine | DX: R06.83 Snoring (principal) | CPT/HCPCS: 95806 ==

== ENCOUNTER 2023-02-15 13:28 | Outpatient (AMB) | payer MEDICAID, SELFPAY ==
[2023-02-15 13:32] VITALS: BP 122/76; PULSE 80; O2SAT 98; BMI 24.3
--- NOTE | 2023-02-15 13:32 | A.OFFVIS_ITS ---
Intake Vital Signs 02/15/23 13:32 Height 5 ft 8 in Weight 159 lb 13.362 oz BMI 24.3 BP 122/76 Blood Pressure Location Lt brachial Position Sitting Pulse 80 Pulse Source Pulse Oximeter Pulse Oximetry (%) 98 Oxygen Delivery Method Room Air Intake Visit Reasons: Asthma Allergies SEAFOOD Allergy (Unknown, Uncoded 02/15/23 13:39) ANAPHYLAXIS seafood Allergy (Unknown, Uncoded 02/15/23 13:39) anaphylaxis HPI HPI Comments History of Present Illness Details The patient is here for a pulmonary evaluation. The patient is a 32-year-old gentleman known history of lifelong asthma previously managed by allergy immunology. He had been getting allergy shots and also Xolair some point. 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 The patient is having increasing symptoms now going to the fall. He does require to use his rescue inhaler every night. He does take his Advair twice a day as prescribed. He does have good adherence to his therapy because otherwise is symptoms to worsen. He does require prednisone several times a year. As far as exposures the patient may have mold in his house. Also although he does not have any pets his mother has pets including a bird. We did review previous blood work demonstrating significant eosinophilia. He does not have any recent allergy testing. The patient also suffers from eczema in addition to chronic rhinitis. he is not aware of being diagnosed with any nasal polyps. Denies any significant reaction to aspirin. On examination he does have expiratory wheezes. He also has prolonged expiratory phase. Will optimize his respiratory therapy by switching his Advair to Trelegy inhaler. In addition to that he continues on antihistamine therapy and also Singulair. Will request allergy testing laboratory data. The patient may need to go back on biologic therapy if he continues to be symptomatic. In the meantime will also request pulmonary function studies and a chest x-ray. [facility] Medical History (Updated 02/15/23 @ 21:36 by Robinson Murray MD) Asthma Chronic allergic rhinitis Eczema Hernia Social History Alcohol intake: current Alcohol intake frequency: a few times a month Review of Systems Const Denies fever(s) Eyes Denies change in vision ENT Reports nasal congestion and Reports nasal discharge Card Denies chest pain Resp Reports cough and Reports wheezing GI Reports no additional complaints Musc Reports no additional complaints Skin/Breast Reports rash Neuro Reports no additional complaints Endo Denies heat intolerance Eulalio/Lymph Denies lymphadenopathy Aller/Immun Reports wheezing Physical Exam Vital Signs: Last Vital Signs Pulse 80 02/15/23 13:32 BP 122/76 02/15/23 13:32 Pulse Ox 98 02/15/23 13:32 Oxygen Delivery Method Room Air 02/15/23 13:32 BMI result Body Mass Index 24.3 Const General: comfortable HEENT Head: Yes atraumatic General nose exam: No nasal polyps present and Abnormal mucous membranes and turbinates present erythematous bilateral Throat: Yes cobblestoning Neck Neck: Yes supple Chest Chest palpation & inspection: normal inspection of the chest Resp Effort & Inspection: normal respiratory effort and prolonged expiratory phase Auscultation: wheezes expiratory wheezes Cardio Rate: regular rate Rhythm: regular rhythm Heart sounds: S1 normal heart sound present and S2 normal heart sound present GI Palpation (GI): Soft to palpation Skin Rashes: rashes noted (eczema) Extrem General: Yes no clubbing, cyanosis or edema Assessment & Plan Assessment & Plan (1) Asthma: Code(s): J45.909 - Unspecified asthma, uncomplicated Qualifiers: Asthma complication type: uncomplicated Asthma persistence: persistent Asthma severity: severe Qualified Code(s): J45.50 - Severe persistent asthma, uncomplicated (2) Eczema: Code(s): L30.9 - Dermatitis, unspecified Qualifiers: Eczema type: flexural Qualified Code(s): L20.82 - Flexural eczema (3) Chronic allergic rhinitis: Code(s): J30.9 - Allergic rhinitis, unspecified Plan stop Advair start Trelegy 200 DEION as needed PFTs CXR bloodwork/allergy testing Good candidate for biologic therapy F/U 6 weeks Orders: Orders Rast Allergen Today J30.9 - Allergic rhinitis, unspecified, J45.909 - Unspecified asthma, uncomplicated, L30.9 - Dermatitis, unspecified Immunoglobulin E Today J30.9 - Allergic rhinitis, unspecified, J45.909 - Unspecified asthma, uncomplicated, L30.9 - Dermatitis, unspecified Complete Blood Count Auto Diff Today J30.9 - Allergic rhinitis, unspecified, J45.909 - Unspecified asthma, uncomplicated, L30.9 - Dermatitis, unspecified Erythrocyte Sedimentation Rate Today J30.9 - Allergic rhinitis, unspecified, J45.909 - Unspecified asthma, uncomplicated, L30.9 - Dermatitis, unspecified Hypersensitive Pneumonitis Prf Today J30.9 - Allergic rhinitis, unspecified, J45.909 - Unspecified asthma, uncomplicated, L30.9 - Dermatitis, unspecified, R91.8 - Other nonspecific abnormal finding of lung field XR chest 2V Today J45.50 - Severe persistent asthma, uncomplicated PFT pulmonary function test Today J45.50 - Severe persistent asthma, uncomplicated Medications: New kheoeqnwjev-frgdafdvq-rlqcfqmq 200-62.5-25 mcg (Trelegy Ellipta) 1 inh inhalation DAILY 30 days 60 ea 12RF Coding Level of Care Code New Pt Level 4 (76959) Diagnoses Asthma J45.50 Asthma complication type: uncomplicated Asthma persistence: persistent Asthma severity: severe Eczema L20.82 Eczema type: flexural Chronic allergic rhinitis J30.9 Time Spent (min) 40
== END 2023-02-15 14:05 | disposition home or self-care (01) ==
PROVIDERS: PCP Internal Medicine; Visit Provider Hospitalist
DX: J45.50 Severe persistent asthma, uncomplicated (principal); L20.82 Flexural eczema; J30.9 Allergic rhinitis, unspecified
CPT/HCPCS: 99204

== ENCOUNTER 2023-02-15 13:28 | Outpatient (REF) | payer MEDICAID, SELFPAY ==
[2023-02-15 14:17] LABS: MANUAL DIFF FLAG NO
[2023-02-15 14:23] LABS: Basophils Absolute Auto 0.1 X10*3/uL (0.0-0.2); Basophils Percent Auto 0.5 % (0-2); Eosinophils Absolute Auto 0.2 X10*3/uL (0.0-0.4); Eosinophils Percent Auto 1.7 % (0-4); Hemoglobin 15.5 g/dl (14.0-18.0); Imm Gran Abs Auto 0.04 X10*3/uL (0.00-0.03); Imm Gran Pct Auto 0.4 % (0.0-0.4); Lymphocytes Absolute Auto 1.7 X10*3/uL (1.2-4.9); Lymphocytes Percent Auto 18.4 % (20-40); Mean Corpuscular HGB Conc 35.2 g/dl (31.0-36.0); Mean Corpuscular Volume 82.2 fL (80.0-98.0); Mean Platelet Volume 8.6 fL (9.4-12.4); Monocytes Absolute Auto 0.6 X10*3/uL (0.1-1.2); Monocytes Percent Auto 6.4 % (2-11); Neutrophils Absolute Auto 6.6 x10*3/uL (2.0-8.3); Neutrophils Percent Auto 72.6 % (45-73); Platelet Count 321 X10*3/uL (160-400); Red Blood Count 5.35 X10*6/uL (4.60-5.80); Red Cell Distribution Width 11.9 % (11.0-16.0); White Blood Count 9.2 X10*3/uL (4.8-10.8)
[2023-02-15 15:00] LABS: Erythrocyte Sedimentation Rate 7 MM/HR (0-15)
[2023-02-17 03:43] LABS: Immunoglobulin E 154 kU/L (<OR=114)
[2023-02-22 18:18] LABS: Asperg fumigatus Precip Abs NEGATIVE (NEGATIVE); Micropoly faeni Abs NEGATIVE (NEGATIVE); Pigeon serum Abs NEGATIVE (NEGATIVE); Saccharo pora viridis Abs NEGATIVE (NEGATIVE); Thermo candidus Abs NEGATIVE (NEGATIVE); Thermoa vulgaris #1 NEGATIVE (NEGATIVE)
== END 2023-02-15 13:29 | disposition home or self-care (01) ==
LOC: HO.LAB 13:28
PROVIDERS: PCP Registered Nurse; Visit Provider Hospitalist
DX: J45.50 Severe persistent asthma, uncomplicated (principal); J30.9 Allergic rhinitis, unspecified; R91.8 Other nonspecific abnormal finding of lung field; L20.82 Flexural eczema
CPT/HCPCS: 36415; 82785; 85025; 85652; 86003; 86331; 86606; 86609; 99202

== ENCOUNTER 2023-03-09 15:34 | Outpatient (REF) | payer MEDICAID, SELFPAY | END 2023-03-09 15:35 | disposition home or self-care (01) | LOC: HO.RESP 15:34 | PROVIDERS: PCP Registered Nurse; Visit Provider Hospitalist | DX: J45.50 Severe persistent asthma, uncomplicated (principal) ==

== ENCOUNTER 2023-04-05 13:46 | Outpatient (AMB) | payer MEDICAID, SELFPAY ==
[2023-04-05 13:46] VITALS: BMI 24.3
--- NOTE | 2023-04-05 13:46 | A.OFFVIS_ITS ---
Intake Vital Signs 04/05/23 13:46 Height 5 ft 8 in Weight 160 lb BMI 24.3 Intake Visit Reasons: Asthma Refrigeration Brazer/Solderer Required: No Allergies SEAFOOD Allergy (Unknown, Uncoded 04/05/23 13:47) ANAPHYLAXIS seafood Allergy (Unknown, Uncoded 04/05/23 13:47) anaphylaxis HPI HPI Comments History of Present Illness Details The patient is a 32-year-old gentleman known history of lifelong asthma previously managed by allergy immunology. He had been getting allergy shots and also Xolair some point. 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 The patient is having increasing symptoms now going to the fall. He does require to use his rescue inhaler every night. He does take his Advair twice a day as prescribed. He does have good adherence to his therapy because otherwise is symptoms to worsen. He does require prednisone several times a year. As far as exposures the patient may have mold in his house. Also although he does not have any pets his mother has pets including a bird. We did review previous blood work demonstrating significant eosinophilia. He does not have any recent allergy testing. The patient also suffers from eczema in addition to chronic rhinitis. he is not aware of being diagnosed with any nasal polyps. Denies any significant reaction to aspirin. On examination he does have expiratory wheezes. He also has prolonged expiratory phase. Will optimize his respiratory therapy by switching his Advair to Trelegy inhaler. In addition to that he continues on antihistamine therapy and also Singulair. Will request allergy testing laboratory data. The patient may need to go back on biologic therapy if he continues to be symptomatic. In the meantime will also request pulmonary function studies and a chest x-ray. 04/05/2023 The patient had a telehealth visit today. He is feeling partially better on the breo/incruse therapy. He is still experiencing chest pressure on a daily basis, moderate inseverity. He did undergo PFTs with a fixed mild obstruction likely due to uncontrolled asthma. He did have +RAST with an elevated IgE. Based on his severe asthma he would benifit from restarting the Xoliar. He will have an evaluation with Allergy in the next few weeks. Therefore, he will call our office if he wants us to request for the Xolair. [facility] Medical History (Updated 02/15/23 @ 21:36 by Robinson Murray MD) Eczema Chronic allergic rhinitis Hernia Asthma Social History Alcohol intake: current Alcohol intake frequency: a few times a month Review of Systems Const Denies fever(s) Eyes Denies change in vision ENT Reports nasal congestion and Reports nasal discharge Card Denies chest pain and Reports other (chest pressure) Resp Reports cough and Reports wheezing Musc Reports no additional complaints Skin/Breast Reports rash Neuro Reports no additional complaints Endo Denies heat intolerance Eulalio/Lymph Denies lymphadenopathy Aller/Immun Reports wheezing Physical Exam Vital Signs: BMI result Body Mass Index 24.3 Const General: comfortable Orientation/consciousness: patient oriented x3 Resp Effort & Inspection: able to speak in complete sentences Neuro General: patient oriented x3 Assessment & Plan Assessment & Plan (1) Asthma: Code(s): J45.909 - Unspecified asthma, uncomplicated Qualifiers: Asthma complication type: uncomplicated Asthma persistence: persistent Asthma severity: severe Qualified Code(s): J45.50 - Severe persistent asthma, uncomplicated (2) Eczema: Code(s): L30.9 - Dermatitis, unspecified Qualifiers: Eczema type: flexural Qualified Code(s): L20.82 - Flexural eczema (3) Chronic allergic rhinitis: Code(s): J30.9 - Allergic rhinitis, unspecified Plan continue Breo/Incruse DEION as needed Good candidate for biologic therapy, would recommend Xolair continue singulair F/U 3 months Medications: New epinephrine (EpiPen 2-Kit) for 2 doses 0.3 mg (0.3 mL) IM Q10M 30 days PRN 2 ea 6RF anaphylaxis J45.40 - Moderate persistent asthma, uncomplicated Telehealth Telehealth Location of provider rendering services: practice address Location of patient: address on file Patient Identification confirmed using: Name, : Yes Telehealth method: voice only Patient verbally consented to treatment: Yes Patient verbally consented to billing insurance company: Yes Patient informed of any privacy concerns related to visit: Yes Coding Level of Care Code Tele Est Pt Level 4 (72631) Diagnoses Severe persistent asthma without complication J45.50 Asthma complication type: uncomplicated Asthma persistence: persistent Asthma severity: severe Flexural eczema L20.82 Eczema type: flexural Chronic allergic rhinitis J30.9 Time Spent (min) 15
== END 2023-04-05 14:01 | disposition home or self-care (01) ==
LOC: HO.HPS 13:46
PROVIDERS: PCP Registered Nurse; Visit Provider Hospitalist
DX: J45.50 Severe persistent asthma, uncomplicated (principal); L20.82 Flexural eczema; J30.9 Allergic rhinitis, unspecified
CPT/HCPCS: 99214

== ENCOUNTER → 2023-04-05 13:46 | Outpatient (BNVA) | payer MEDICAID, SELFPAY | PROVIDERS: PCP Registered Nurse; Visit Provider Hospitalist | DX: J30.9 Allergic rhinitis, unspecified (principal); J45.909 Unspecified asthma, uncomplicated; L30.9 Dermatitis, unspecified ==

== ENCOUNTER 2023-06-10 11:42 | Outpatient (REF) | payer MEDICAID, SELFPAY ==
--- NOTE | ~2023-06-10 | XR_ITS ---
EXAMINATION: XR HAND, RIGHT CLINICAL INFORMATION: Injury with right hand pain COMPARISON: 01/07/2016 TECHNIQUE: PA, lateral, and oblique views of the right hand. FINDINGS: The bones and soft tissues are normal. No fracture. Alignment is anatomic. Joint spaces are maintained. No erosions or soft tissue calcifications. XR/XR hand RT min 3V IMPRESSION: Normal right hand.
== END 2023-06-10 11:43 | disposition home or self-care (01) ==
LOC: HO.HHCX 11:42
PROVIDERS: Visit Provider Family Medicine
DX: M79.641 Pain in right hand (principal)
CPT/HCPCS: 73130

== ENCOUNTER 2023-10-07 15:56 | Outpatient (REF) | payer MEDICAID, SELFPAY ==
[2023-10-10 12:58] LABS: TS Negative Control Passed; TS Panel A 0; TS Panel B 0; TS Positive Control Passed; TSpotTB Negative (Negative)
== END 2023-10-07 15:57 | disposition home or self-care (01) ==
LOC: HO.LAB 15:56
PROVIDERS: PCP Registered Nurse; Visit Provider Registered Nurse
DX: Z11.1 Encounter for screening for respiratory tuberculosis (principal)
CPT/HCPCS: 36415; 86481

== ENCOUNTER 2024-04-27 07:24 | Emergency (ER) | payer MEDICAID, SELFPAY ==
--- NOTE | 2024-04-27 | ECG_ITS ---
Test Reason : CHEST PAIN Blood Pressure : / mmHG Vent. Rate : 071 BPM Atrial Rate : 071 BPM P-R Int : 130 ms QRS Dur : 088 ms QT Int : 394 ms P-R-T Axes : 079 076 062 degrees QTc Int : 428 ms Normal sinus rhythm with sinus arrhythmia Normal ECG When compared with ECG of 20-SEP-2020 19:09, Borderline criteria for Inferior infarct are no longer Present T wave inversion no longer evident in Lateral leads Referred By: Generic ED Physician Electronically Signed By:CHALO ROSADO MD
--- NOTE | ~2024-04-27 | XR_ITS ---
EXAMINATION: XR CHEST CLINICAL INFORMATION: Chest pain COMPARISON: Chest x-ray on 10/23/2021 TECHNIQUE: 2 views of the chest were obtained. FINDINGS: No significant abnormality is noted involving the heart, lungs, mediastinum, bony thorax or soft tissues. XR/XR chest 2V IMPRESSION: Unremarkable examination. Electronically signed by: Tracy Hernandez MD 04/27/2024 08:54 AM [facility]
[2024-04-27 07:26] VITALS: BP 120/75; PULSE 69; RESP 20; TEMP 36.6; O2SAT 99; BMI 23.2
[2024-04-27 07:58] LABS: MANUAL DIFF FLAG NO
[2024-04-27 07:59] LABS: Basophils Absolute Auto 0.1 X10*3/uL (0.0-0.2); Basophils Percent Auto 0.7 % (0-2); Eosinophils Absolute Auto 0.6 X10*3/uL (0.0-0.4); Eosinophils Percent Auto 8.6 % (0-4); Hematocrit 40.6 % (42.0-52.0); Hemoglobin 14.8 g/dl (14.0-18.0); Imm Gran Abs Auto 0.02 X10*3/uL (0.00-0.03); Imm Gran Pct Auto 0.3 % (0.0-0.4); Lymphocytes Absolute Auto 1.8 X10*3/uL (1.2-4.9); Lymphocytes Percent Auto 24.8 % (20-40); Mean Corpuscular HGB Conc 36.5 g/dl (31.0-36.0); Mean Corpuscular Hemoglobin 30.3 pg (27.0-33.0); Mean Platelet Volume 8.6 fL (9.4-12.4); Monocytes Absolute Auto 0.5 X10*3/uL (0.1-1.2); Monocytes Percent Auto 7.1 % (2-11); Neutrophils Absolute Auto 4.3 x10*3/uL (2.0-8.3); Neutrophils Percent Auto 58.5 % (45-73); Platelet Count 284 X10*3/uL (160-400); Red Blood Count 4.89 X10*6/uL (4.60-5.80); Red Cell Distribution Width 12.3 % (11.0-16.0); White Blood Count 7.3 X10*3/uL (4.8-10.8)
[2024-04-27 08:14] LABS: Anion Gap 11 (12-20); Blood Urea Nitrogen 11 mg/dL (9-16); Calcium 8.8 mg/dL (8.4-10.2); Carbon Dioxide 23 mmol/L (22-29); Chloride 109 mmol/L (96-108); Creatinine Clr Calc Pharmacy 140.8; Estimated Glomerular Filt Rate > 60; Glucose Random 104 mg/dL (60-115); Potassium 3.6 mmol/L (3.3-5.1); Sodium 139 mmol/L (135-145)
[2024-04-27 08:23] LABS: Troponin-I High Sensitivity < 2.7 ng/L (<3.5-35.0)
[2024-04-27 09:23] VITALS: BP 119/76; PULSE 66; RESP 15; O2SAT 100
--- NOTE | 2024-04-27 09:35 | ED_ITS ---
HPI - Chest Pain General Chief Complaint: Chest Pain Stated Complaint: back pain-cp-sob Time Seen by Provider: 04/27/24 09:35 Source: patient Mode of arrival: ambulatory Limitations: no limitations History of Present Illness ED Provider: Patricia Phelan PA-C HPI narrative: Patient is a 33 year old assigned male at with a history of asthma and eczema presenting to the emergency department today with left sided rib and chest pain worse with deep breathing. Patient states that over the last day he has been having left sided rib pain that radiates into his chest and back and is worse with deep breathing and movement. Patient denies any dizziness, lightheadedness, abdominal pain, nausea, vomiting, fever, chills, blurry vision, double vision, loss of vision, difficulty breathing, shortness of breath, back pain, night sweats, pain with urination, increased urinary frequency, increased urinary urgency, blood in his urine or stool, syncope or a near syncopal episode, recent trauma or falls, bowel incontinence, bladder incontinence, or any other complaints at this time. Treatment prior to arrival: none Related Data Home Medications ?Medication ?Instructions ?Recorded ?Confirmed albuterol sulfate 90 mcg/actuation 2 puff inhalation Q4H 09/20/20 09/20/20 aerosol inhaler (ProAir HFA) epinephrine 0.3 mg/0.3 mL 1 IM NEEDED 09/20/20 injection, auto-injector fluticasone propionate 50 1 spray intranasal DAILY 09/20/20 09/20/20 mcg/actuation nasal spray,suspension dextroamphetamine-amphetamine 5 mg 5 mg PO BID 02/15/23 tablet (Adderall) montelukast 10 mg tablet 10 mg PO QAM 02/15/23 ondansetron 4 mg disintegrating 4 mg PO Q6H PRN nausea and vomiting 02/15/23 tablet ibuprofen 800 mg tablet 800 mg PO TID PRN 04/05/23 Previous Rx's ?Medication ?Instructions ?Recorded cyclobenzaprine 10 mg tablet 10 mg PO TID #20 tabs 03/16/21 fluticasone furoate 200 1 inh inhalation DAILY 30 days #60 02/26/23 mcg-vilanterol 25 mcg/dose ea inhalation powder (Breo Ellipta) umeclidinium 62.5 mcg/actuation 1 inh inhalation DAILY 30 days #30 02/26/23 blister powder for inhalation ea (Incruse Ellipta) epinephrine 0.3 mg/0.3 mL 0.3 mg (0.3 mL) IM Q10M PRN 04/05/23 injection, auto-injector (EpiPen anaphylaxis 30 days #2 ea 2-Kit) Allergies Allergy/AdvReac Type Severity Reaction Status Date / Time SEAFOOD Allergy Unknown ANAPHYLAXIS Uncoded 04/27/24 07:28 seafood Allergy Unknown anaphylaxis Uncoded 04/27/24 07:28 Review of Systems 2 Constitutional: Constitutional: Reports no additional constitutional complaints, Denies chills, Denies fever(s) and Denies night sweats Eyes: Eyes: Reports no additional eye complaints, Denies blurry vision, Denies change in vision, Denies diplopia, Denies eye discharge, Denies loss of vision and Denies eye pain ENT: Denies dizziness Cardiovascular: Cardiovascular: Reports no additional cardiovascular complaints, Reports chest pain, Denies lightheadedness, Denies Loss of Consciousness and Denies dyspnea Respiratory: Respiratory: Reports no additional respiratory complaints and Denies dyspnea Gastrointestinal: Gastrointestinal: Reports no additional gastrointestinal complaints, Denies abdominal pain, Denies melena, Denies hematochezia, Denies change in bowel habits and Denies change in stool character Genitourinary: Genitourinary: Reports no additional male genitourinary complaints, Denies hematuria, Denies oliguria, Denies difficulty urinating, Denies dysuria, Denies urinary frequency, Denies urinary hesitancy, Denies urinary incontinence and Denies urinary urgency Musculoskeletal: Musculoskeletal: Reports no additional musculoskeletal complaints, Denies numbness and Denies tingling Comments: left rib pain Neurologic: Denies dizziness, Denies loss of vision, Denies numbness and Denies tingling Psychiatric: Psychiatric: Reports no additional psychiatric complaints Endocrine: Endocrine: Reports no additional endocrine complaints Hematologic/Lymphatic: Hematologic/Lymphatic: Reports no additional hematologic/lymphatic complaints Allergic/Immunologic: Allergic/Immunologic: Reports no additional allergic/immunologic complaints PMFSH Past Medical History Attestation statement: The following information was validated with the patient. Source: old records reviewed and nursing notes reviewed Medical History Eczema Chronic allergic rhinitis Hernia Asthma Social History Social History Alcohol intake: current Alcohol intake frequency: a few times a month Advance Directives: No Advance Directives Information Provided: Yes Physical Exam 2 Vital Signs: Vital Signs: Last Vital Signs Temp 97.9 F 04/27/24 09:52 Pulse 66 04/27/24 09:52 Resp 15 04/27/24 09:52 BP 119/76 04/27/24 09:52 Pulse Ox 100 04/27/24 09:52 O2 Del Method Room Air 04/27/24 09:23 BMI result Body Mass Index 23.2 Const: General: cooperative, no acute distress, alert and awake Nutritional Appearance: well nourished Orientation/consciousness: patient oriented x3 Limitations: no limitations HEENT: Head: Yes normal to inspection and Yes atraumatic Ears: hearing grossly normal bilaterally and external ears normal General nose exam: Normal external nose present, no nasal discharge noted and no epistaxis Face and sinus: Yes normal facial exam, No abrasion and No laceration Mouth: Normal oral and palatal mucosa present, no drooling and no muffled voice Eyes: General: appearance normal, both eyes and all related structures P eriorbital: periorbital findings normal Eyelids: Yes eyelids normal C onjunctivae: conjunctivae normal Pupils: Equal, round and reactive pupils present EOM: EOMs intact bilaterally Neck: Neck: Yes normal visual inspection, Yes full ROM and Yes no lymphadenopathy Chest: Chest palpation & inspection: normal inspection of the chest Resp: Effort & Inspection: normal respiratory effort and able to speak in complete sentences GI: Inspection: Yes normal to inspection Neuro: General: patient oriented x3 and moves all extremities Cranial nerves: Yes Equal, round and reactive pupils present Cognition (Neuro): n ormal cognition Extrem: General: Yes normal to inspection, Yes full ROM and Yes capillary refill normal Psych: Appearance: grossly normal Mental Status: mental status grossly normal Affect: normal affect Attitude: cooperative Thought process: N ormal thought process present Thought content: Normal thought content present Insight: Good insight present (Psych) Medications Administered Discontinued Medications Generic Name Dose Route Start Last Admin Trade Name Freq PRN Reason Stop Dose Admin Ketorolac Tromethamine 15 mg 04/27/24 09:37 04/27/24 09:49 Ketorolac Tromethamine 15 Mg/Ml Vial IM 04/27/24 09:38 15 mg ONCE ONE Administration Medical Decision Making Medical Decision Making [facility] Narrative: Patient is a 33 year old assigned male at with a history of asthma and eczema presenting to the emergency department today with left rib and chest pain. Patient's physical exam was unremarkable. Patient's blood work was unremarkable. Patient's EKG was unremarkable. Patient's chest x-ray showed no acute process. I explained my physical exam findings as well as all test results to the patient. I answered all questions asked by the patient. I stressed the importance of the patient taking his medication as directed (either prescribed or as the over the counter packaging recommends). I stressed the importance of the patient following up with his primary care provider. I stressed the importance of the patient returning to the emergency department immediately if his symptoms were to worsen or if he were to develop any dizziness, shortness of breath, difficulty breathing, chest pain, blurry vision, loss of vision, nausea, vomiting, abdominal pain, fever, chills, back pain, or any other complaints. Patient verbalized agreement and understanding with this treatment plan and discharge. Differential Diagnosis Differential Diagnoses: The differential diagnosis associated with the presentation includes NSTEMI STEMI Costochondritis Pleurisy Admission/Observation Consideration of admission/observation: Escalation of care including admission/observation considered Patient would have been admitted to the hospital had his work up had any findings where hospital admission was appropriate and his clinical presentation warranted hospital admission. Lab Data [facility] Lab Attestation statement: I reviewed the patient's lab results. My interpretation of these results are in the [facility] Rationale portion of this note. 04/27/24 07:46 04/27/24 07:46 Labs: Lab Results 04/27/24 Range/Units 07:46 WBC 7.3 (4.8-10.8) X10*3/uL RBC 4.89 (4.60-5.80) X10*6/uL Hgb 14.8 (14.0-18.0) g/dl Hct 40.6 L (42.0-52.0) % MCV 83.0 (80.0-98.0) fL MCH 30.3 (27.0-33.0) pg MCHC 36.5 H (31.0-36.0) g/dl RDW 12.3 (11.0-16.0) % Plt Count 284 (160-400) X10*3/uL MPV 8.6 L (9.4-12.4) fL Immature Gran % (Auto) 0.3 (0.0-0.4) % Neut % (Auto) 58.5 (45-73) % Lymph % (Auto) 24.8 (20-40) % [place] % (Auto) 7.1 (2-11) % Eos % (Auto) 8.6 H (0-4) % Baso % (Auto) 0.7 (0-2) % Lymph # (Auto) 1.8 (1.2-4.9) X10*3/uL [place] # (Auto) 0.5 (0.1-1.2) X10*3/uL Eos # (Auto) 0.6 H (0.0-0.4) X10*3/uL Baso # (Auto) 0.1 (0.0-0.2) X10*3/uL Abs Immat Gran (auto) 0.02 (0.00-0.03) X10*3/uL Absolute Neuts (auto) 4.3 (2.0-8.3) x10*3/uL Absolute Nucleated RBC 0.000 (0.0-0.012) X10*3/uL Nucleated RBC % (auto) 0.0 (0.0-0.2) /100WBC Sodium 139 (135-145) mmol/L Potassium 3.6 (3.3-5.1) mmol/L Chloride 109 H (96-108) mmol/L Carbon Dioxide 23 (22-29) mmol/L Anion Gap 11 L (12-20) BUN 11 (9-16) mg/dL Creatinine 0.76 (0.5-1.4) mg/dL Estim Creat Clear Calc 140.8 Estimated GFR > 60 Random Glucose 104 (60-115) mg/dL Calcium 8.8 D (8.4-10.2) mg/dL Troponin I High Sens < 2.7 (<3.5-35.0) ng/L Independent Interpretation I performed an independent interpretation of an: EKG and Plain X-Ray Interpretation: My interpretation is in agreement with the radiologist's impression of this imaging study. L EXAMINATION: XR CHEST CLINICAL INFORMATION: Chest pain COMPARISON: Chest x-ray on 10/23/2021 TECHNIQUE: 2 views of the chest were obtained. FINDINGS: No significant abnormality is noted involving the heart, lungs, mediastinum, bony thorax or soft tissues. XR/XR chest 2V IMPRESSION: Unremarkable examination. Electronically signed by: Tracy Hernandez MD 04/27/2024 08:54 AM EST Dictated By: Tracy Hernandez MD Signed By: Electronically signed by Tracy Hernandez MD 04/27/24 0854 Vent. Rate: 071 BPM Atrial Rate: 071 BPM P-R Int: 130 ms QRS Dur: 088 ms QT Int: 394 ms P-R-T Axes: 079 076 062 degrees QTc Int: 428 ms Normal sinus rhythm with sinus arrhythmia Normal ECG When compared with ECG of 20-SEP-2020 19:09, Borderline criteria for Inferior infarct are no longer Present T wave inversion no longer evident in Lateral leads DD/ 0750 Radiology Impression Discussion of test interpretation with radiology: I have reviewed the radiologist's reading. Discharge Plan Discharge Clinical Impression: Acute costochondritis Patient Disposition: Home, Self-Care Instructions: Costochondritis (ED) Additional Instructions: Follow up with your primary care provider. Return to the emergency department immediately if your symptoms worsen or if you develop any dizziness, shortness of breath, difficulty breathing, chest pain, blurry vision, loss of vision, nausea, vomiting, abdominal pain, fever, chills, back pain, or any other complaints. Prescriptions: No Action fluticasone furoate-vilanterol [Breo Ellipta] 200-25 mcg/dose blister with device 1 inh inhalation DAILY 30 Days Qty: 60 11RF Incruse Ellipta 62.5 mcg/actuation blister with device 1 inh inhalation DAILY 30 Days Qty: 30 11RF epinephrine 0.3 mg/0.3 mL auto-injector 1 IM NEEDED albuterol sulfate [ProAir HFA] 90 mcg/actuation HFA aerosol inhaler 2 puff inhalation Q4H fluticasone propionate 50 mcg/actuation spray,suspension 1 spray intranasal DAILY cyclobenzaprine 10 mg tablet 10 mg PO TID Qty: 20 0RF Rx Instructions: Flexeril will make you drowsy. Do not take it and drive. Do not take it and consume alcohol or other sedatives ondansetron 4 mg tablet,disintegrating 4 mg PO Q6H PRN (Reason: nausea and vomiting) montelukast 10 mg tablet 10 mg PO QAM dextroamphetamine-amphetamine [Adderall] 5 mg tablet 5 mg PO BID Rx Instructions: administer doses at least 4-6 hours apart ibuprofen 800 mg tablet 800 mg PO TID PRN epinephrine [EpiPen 2-Kit] 0.3 mg/0.3 mL auto-injector 0.3 mg IM Q10M PRN (Reason: anaphylaxis) 30 Days Qty: 2 6RF Rx Instructions: for 2 doses Referrals: Tammi Ledezma, [place] [Primary Care Provider] - Stand Alone Forms: Work/School Release Interventions: ED Discharge Assessment Last Done: 04/27/24 09:52 Discharge Date/Time: 04/27/24 09:55 Print Language: [place]
[2024-04-27] MEDS: Ketorolac Tromethamine 15 MG/ML VIAL IM (09:49)
[2024-04-27 09:52] VITALS: BP 119/76; PULSE 66; RESP 15; TEMP 36.6; O2SAT 100
== END 2024-04-27 09:55 | disposition home or self-care (01) ==
PROVIDERS: Emergency Provider Emergency Medicine; PCP Registered Nurse
DX: M94.0 Chondrocostal junction syndrome [Tietze] (principal); R07.89 Other chest pain; M54.50 Low back pain, unspecified; Z79.899 Other long term (current) drug therapy
CPT/HCPCS: 36415; 71046; 80048; 84484; 85025; 93005; 96372; 99284; J1885

== ENCOUNTER → 2024-04-27 07:50 | Outpatient (BNV) | payer MEDICAID, SELFPAY | PROVIDERS: Emergency Provider Emergency Medicine; PCP Registered Nurse; Visit Provider Internal Medicine Cardiovascular Disease | DX: R07.9 Chest pain, unspecified (principal) | CPT/HCPCS: 93010 ==

== ENCOUNTER 2024-09-15 16:09 | Emergency (ER) | payer SELFPAY ==
[2024-09-15 16:28] VITALS: BP 115/75; PULSE 80; RESP 16; TEMP 37; O2SAT 100; BMI 21.0
--- NOTE | 2024-09-15 17:39 | ED.BACK ---
HPI - Back Pain/Injury General Chief Complaint: Back Pain/Injury Stated Complaint: Back pain effecting movement Time Seen by Provider: 09/15/24 17:28 Source: patient Mode of arrival: ambulatory Limitations: no limitations History of Present Illness ED Provider: Dr. Minnie Rivera HPI Narrative: Patient comes to the emergency room complaining of bilateral lower back pain. Patient states it started approximately 24 hours ago. Patient denies flank pain hematuria or dysuria. Patient denies any obvious injuries, heavy lifting. Patient states that he went to sleep last night, hoping that he would wake up with less pain. However, a few hours prior to arriving to the ED, patient states that he is having more bilateral pain. Patient denies thoracic or lumbar spine tenderness. Denies IV drug use. Patient denies urinary retention/ incontinence Related Data Home Medications ?Medication ?Instructions ?Recorded ?Confirmed albuterol sulfate 90 mcg/actuation 2 puff inhalation Q4H 09/20/20 09/20/20 aerosol inhaler (ProAir HFA) epinephrine 0.3 mg/0.3 mL 1 IM NEEDED 09/20/20 injection, auto-injector fluticasone propionate 50 1 spray intranasal DAILY 09/20/20 09/20/20 mcg/actuation nasal spray,suspension dextroamphetamine-amphetamine 5 mg 5 mg PO BID 02/15/23 tablet (Adderall) montelukast 10 mg tablet 10 mg PO QAM 02/15/23 ondansetron 4 mg disintegrating 4 mg PO Q6H PRN nausea and vomiting 02/15/23 tablet ibuprofen 800 mg tablet 800 mg PO TID PRN 04/05/23 Previous Rx's ?Medication ?Instructions ?Recorded cyclobenzaprine 10 mg tablet 10 mg PO TID #20 tabs 03/16/21 fluticasone furoate 200 1 inh inhalation DAILY 30 days #60 02/26/23 mcg-vilanterol 25 mcg/dose ea inhalation powder (Breo Ellipta) umeclidinium 62.5 mcg/actuation 1 inh inhalation DAILY 30 days #30 02/26/23 blister powder for inhalation ea (Incruse Ellipta) epinephrine 0.3 mg/0.3 mL 0.3 mg (0.3 mL) IM Q10M PRN 04/05/23 injection, auto-injector (EpiPen anaphylaxis 30 days #2 ea 2-Kit) cyclobenzaprine 5 mg tablet 5 mg PO TID PRN muscle spasm #10 09/15/24 tabs ketorolac 10 mg tablet 10 mg PO Q8H PRN pain #10 tabs 09/15/24 Allergies Allergy/AdvReac Type Severity Reaction Status Date / Time SEAFOOD Allergy Unknown ANAPHYLAXIS Uncoded 09/15/24 16:29 seafood Allergy Unknown anaphylaxis Uncoded 09/15/24 16:29 Review of Systems Review of Systems: Constitutional : No Weight loss, No Fever, No Chills, No Night Sweats, No Fatigue, No Malaise ENT/Mouth : No Hearing loss, No Ear Pain, No Nasal Congestion, No Sinus Pain, No Hoarseness, No sore throat, No Rhinorrhea, No Swallowing Difficulty Eyes: No Eye Pain, No Swelling, No Redness, No Foreign Body, No Discharge, No Vision Changes Cardiovascular : No Chest Pain, No SOB, No Dyspnea on Exertion, No Orthopnea, No Edema, No Palpitations Respiratory : No Cough, No Sputum, No Wheezing, No Smoke Exposure, No Dyspnea Gastrointestinal : No Nausea, No Vomiting, No Diarrhea, No Constipation, No abdominal Pain, No Hematochezia, No Melena Genitourinary : no irregular bleeding, No Dysuria, No Urinary Frequency, No Hematuria, No Urinary Incontinence, No Urgency, No Flank Pain, No Urinary Flow Changes, No Hesitancy Musculoskeletal : Complaining of bilateral lower back pain, No Myalgias, No Joint Swelling Skin : No Skin Lesions, No rash Neuro : No Weakness, No Numbness, No Paresthesias, No Loss of Consciousness, No Dizziness, No Headache Psych : No Anxiety/Panic, No Depression, No SI/HI/AH/VH, No Social Issues, Heme/Lymph: No Bruising, No Bleeding,No Lymphadenopathy Endocrine : No Polyuria, No Polydipsia, No Temperature Intolerance PMFSH Past Medical History Medical History Eczema Chronic allergic rhinitis Hernia Asthma Social History Social History Alcohol intake: current Alcohol intake frequency: a few times a month Advance Directives: No Advance Directives Information Provided: No Physical Exam Vital Signs: Vital Signs: Last Vital Signs Temp 98.6 F 09/15/24 16:28 Pulse 80 09/15/24 16:28 Resp 16 09/15/24 16:28 BP 115/75 09/15/24 16:28 Pulse Ox 100 09/15/24 16:28 O2 Del Method Room Air 09/15/24 16:28 BMI result Body Mass Index 21.0 Const: Other: Appearance: Alert. Oriented X3. No acute distress. Eyes: Pupils equal, round and reactive to light. ENT: Pharynx normal. Neck: Normal inspection. Neck supple. No lymph nodes noted. No crepitus CVS: Normal heart rate and rhythm. Pulses normal. Normal S1 and S2 Respiratory: No respiratory distress. Breath sounds normal. No Wheezing. No rales Abdomen: Soft and nontender. No rigidity. No distention back: No significant pain to palpation over the bilateral aspects of the back, no thoracic or lumbar spine tenderness. Patient states that the bilateral sides of the back hurt more with flexion and extension and rotation of the back Skin: Skin warm and dry. Normal skin color. Normal skin turgor. Extremities: No lower extremity edema. No Lacerations. No Rash Neuro: Oriented X 3. No motor deficit. No sensory deficit. Moving all extremities. No slurred speech. CN 2 through 12 grossly intact Psych: calm, cooperative, normal affect Course Course Course Narrative: patient receiving IM ketorolac and p.o. cyclobenzaprine. X-rays would not be of any benefit urinalysis pending to rule out UTI/pyelonephritis Medications Administered Discontinued Medications Generic Name Dose Route Start Last Admin Trade Name Freq PRN Reason Stop Dose Admin Cyclobenzaprine HCl 5 mg 09/15/24 17:36 09/15/24 17:44 Cyclobenzaprine Hcl 5 Mg Tablet PO 09/15/24 17:37 5 mg ONCE ONE Administration Ketorolac Tromethamine 60 mg 09/15/24 17:36 09/15/24 17:44 Ketorolac Tromethamine 60 Mg/2 Ml Vial IM 09/15/24 17:37 60 mg ONCE ONE Administration Medical Decision Making Medical Decision Making [facility] Narrative: Urinalysis negative for UTI. Kidney stones, pyelonephritis not suspected. Patient does not use IV drugs. Patient does not have thoracic or lumbar spine pain. Pain is more bilateral, mostly musculoskeletal. Patient was given IM Toradol and cyclobenzaprine. Lab Data Labs: Lab Results 09/15/24 Range/Units 17:48 Urine Color Yellow Urine Appearance Clear Urine pH 7.5 (5.0-9.0) Ur Specific [place] 1.010 (1.005-1.025) Urine Protein Negative (Neg-Trace) mg/dL Urine Glucose (UA) Negative (Negative) mg/dL Urine Ketones Negative (Negative) mg/dL Urine Blood Negative (Negative) Urine Nitrite Negative (Negative) Ur Leukocyte Esterase Negative (Negative) Discharge Plan Discharge Clinical Impression: Musculoskeletal back pain Patient Disposition: Home, Self-Care Instructions: Back Pain (ED), Lower Back Exercises (ED) Additional Instructions: Please follow-up with your primary care physician tomorrow. If you have any worsening or new symptoms, please return to the emergency room or call 911 Prescriptions: New ketorolac 10 mg tablet 10 mg PO Q8H PRN (Reason: pain) Qty: 10 0RF Rx Instructions: do not use this medication with NSAIDs, only Tylenol if needed cyclobenzaprine 5 mg tablet 5 mg PO TID PRN (Reason: muscle spasm) Qty: 10 0RF Rx Instructions: do not drive or work after taking this medication. No Action fluticasone furoate-vilanterol [Breo Ellipta] 200-25 mcg/dose blister with device 1 inh inhalation DAILY 30 Days Qty: 60 11RF Incruse Ellipta 62.5 mcg/actuation blister with device 1 inh inhalation DAILY 30 Days Qty: 30 11RF epinephrine 0.3 mg/0.3 mL auto-injector 1 IM NEEDED albuterol sulfate [ProAir HFA] 90 mcg/actuation HFA aerosol inhaler 2 puff inhalation Q4H fluticasone propionate 50 mcg/actuation spray,suspension 1 spray intranasal DAILY cyclobenzaprine 10 mg tablet 10 mg PO TID Qty: 20 0RF Rx Instructions: Flexeril will make you drowsy. Do not take it and drive. Do not take it and consume alcohol or other sedatives ondansetron 4 mg tablet,disintegrating 4 mg PO Q6H PRN (Reason: nausea and vomiting) montelukast 10 mg tablet 10 mg PO QAM dextroamphetamine-amphetamine [Adderall] 5 mg tablet 5 mg PO BID Rx Instructions: administer doses at least 4-6 hours apart ibuprofen 800 mg tablet 800 mg PO TID PRN epinephrine [EpiPen 2-Kit] 0.3 mg/0.3 mL auto-injector 0.3 mg IM Q10M PRN (Reason: anaphylaxis) 30 Days Qty: 2 6RF Rx Instructions: for 2 doses Stand Alone Forms: Work/School Release Print Language: [place]
[2024-09-15] MEDS: Cyclobenzaprine HCl 5 MG TABLET PO (17:44)
[2024-09-15] MEDS: Ketorolac Tromethamine 60 MG/2 ML VIAL IM (17:44)
[2024-09-15 17:58] LABS: Appearance Urine Clear; Color Urine Yellow; Glucose Urine UA Negative (Negative); Leukocyte Esterase Urine Negative (Negative); Nitrite Urine Negative (Negative); PH 7.5 (5.0-9.0); Urine Blood Negative (Negative); Urine Ketones Negative (Negative); Urine Protein Negative (Neg-Trace)
[2024-09-15 18:52] VITALS: BP 119/65; PULSE 63; RESP 16; TEMP 37; O2SAT 99
== END 2024-09-15 18:53 | disposition home or self-care (01) ==
PROVIDERS: Emergency Provider Emergency Medicine; PCP Registered Nurse
DX: M79.18 Myalgia, other site (principal); M54.50 Low back pain, unspecified
CPT/HCPCS: 81003; 96372; 99284; J1885

== ENCOUNTER 2024-10-02 02:27 | Emergency (ER) | payer SELFPAY ==
--- NOTE | ~2024-10-02 | XR_ITS ---
CLINICAL HISTORY: cough 2 view chest x-ray Comparison: CR/SR - XR CHEST 2V - 04/27/24 08:11 EST Findings: No consolidation or effusion. Similar likely tiny calcified granuloma in the left lung base. Normal size heart. No acute fracture. IMPRESSION: 1. No acute findings. This document has been electronically signed by: Bonilla Rain MD on 10/02/2024 03:28:24
--- NOTE | ~2024-10-02 | CT_ITS ---
CLINICAL HISTORY: Pain upper abdomen etiology? CT abdomen and pelvis without contrast Comparison: None Findings: The lung bases are clear. Contracted gallbladder. No urolithiasis Distended stomach with air-fluid level. No bowel obstruction. Diffuse small bowel mural thickening can be seen with enteritis. Prominent inguinal nodes. Scattered colonic diverticulosis without diverticulitis or colitis. Normal appendix. Circumferential bladder wall thickening. No acute fracture. IMPRESSION: 1. Circumferential bladder wall thickening may be related to degree of underdistention or mild cystitis. 2. Possible mildly diffuse enteritis. This document has been electronically signed by: Bonilla Rain MD on 10/02/2024 04:10:27
[2024-10-02 02:39] VITALS: BP 117/81; PULSE 87; RESP 18; TEMP 36.8; O2SAT 99; BMI 21.2
--- NOTE | 2024-10-02 02:54 | ED_ITS ---
HPI - Abdominal Pain General Chief Complaint: Abdominal Pain Stated Complaint: sharp right side pain Time Seen by Provider: 10/02/24 02:54 Source: patient Mode of arrival: ambulatory Limitations: no limitations History of Present Illness ED Provider: HPI narrative: Patient complaining of right upper abdominal pain for last 3 days off and on no relation with food no nausea no vomiting patient has been constipated for a while had last bowel movement yesterday but never had similar pain in the past no history of kidney stone does have family history of stomach cancer no recent weight loss has a good appetite no fever no chills no urinary symptoms Related Data Home Medications ?Medication ?Instructions ?Recorded ?Confirmed albuterol sulfate 90 mcg/actuation 2 puff inhalation Q4H 09/20/20 09/20/20 aerosol inhaler (ProAir HFA) epinephrine 0.3 mg/0.3 mL 1 IM NEEDED 09/20/20 injection, auto-injector fluticasone propionate 50 1 spray intranasal DAILY 09/20/20 09/20/20 mcg/actuation nasal spray,suspension dextroamphetamine-amphetamine 5 mg 5 mg PO BID 02/15/23 tablet (Adderall) montelukast 10 mg tablet 10 mg PO QAM 02/15/23 ondansetron 4 mg disintegrating 4 mg PO Q6H PRN nausea and vomiting 02/15/23 tablet ibuprofen 800 mg tablet 800 mg PO TID PRN 04/05/23 Previous Rx's ?Medication ?Instructions ?Recorded cyclobenzaprine 10 mg tablet 10 mg PO TID #20 tabs 03/16/21 fluticasone furoate 200 1 inh inhalation DAILY 30 days #60 02/26/23 mcg-vilanterol 25 mcg/dose ea inhalation powder (Breo Ellipta) umeclidinium 62.5 mcg/actuation 1 inh inhalation DAILY 30 days #30 02/26/23 blister powder for inhalation ea (Incruse Ellipta) epinephrine 0.3 mg/0.3 mL 0.3 mg (0.3 mL) IM Q10M PRN 04/05/23 injection, auto-injector (EpiPen anaphylaxis 30 days #2 ea 2-Kit) cyclobenzaprine 5 mg tablet 5 mg PO TID PRN muscle spasm #10 09/15/24 tabs ketorolac 10 mg tablet 10 mg PO Q8H PRN pain #10 tabs 09/15/24 polyethylene glycol 3350 17 17 g PO DAILY #238 grams 10/02/24 gram/dose oral powder (Miralax) Allergies Allergy/AdvReac Type Severity Reaction Status Date / Time SEAFOOD Allergy Unknown ANAPHYLAXIS Uncoded 10/02/24 02:42 seafood Allergy Unknown anaphylaxis Uncoded 10/02/24 02:42 Review of Systems Review of Systems Yes all other systems are reviewed and are negative [facility] Past Medical History Medical History Eczema Chronic allergic rhinitis Hernia Asthma Social History Social History Unable to assess alcohol history related to: Unknown Alcohol intake: current Alcohol intake frequency: a few times a month Advance Directives: No Advance Directives Information Provided: Yes Physical Exam ED Vital Signs: Vital Signs - 24 hr 10/02/24 02:39 Temperature 98.2 F Pulse Rate 87 Respiratory Rate 18 Blood Pressure 117/81 Pulse Oximetry 99 Oxygen Delivery Method Room Air BMI result Body Mass Index 21.2 Appearance: Alert. Oriented X3. No acute distress. Eyes: No pallor or icterus ENT: Pharynx normal. Oral Mucosa moist Neck: Normal inspection. Neck supple. CVS: Normal heart rate and rhythm. Pulses normal. Respiratory: No respiratory distress. Equal air entry bilateral, no wheezing/rales/rhonchi Abdomen: Soft and tenderness with guarding right upper abdomen Bowel sounds are present, no mass palpable, no CVA tenderness Skin: Skin warm and dry. Normal skin color. Normal skin turgor. Extremities: No lower extremity edema. No calf tenderness Neuro: Oriented X 3. No motor deficit. No sensory deficit.No cerebellar signs , cranial nerves II-XII intact Medical Decision Making Medical Decision Making [facility] Narrative: Patient's right upper abdominal pain without any relation to the food bedside ultrasound was done which was negative for kidney stone or gallstone but patient was tender in that area etiology not clear will do a CT scan patient's WBC count is normal Patient's CT scan negative for acute Differential Diagnosis Differential Diagnoses: The differential diagnosis associated with the presentation includes Gallstones/pancreatitis/constipation/kidney stone Lab Data [facility] Lab Attestation statement: I reviewed the patient's lab results. 10/02/24 02:49 10/02/24 02:49 Labs: Lab Results 10/02/24 10/02/24 Range/Units 02:49 04:05 WBC 10.6 (4.8-10.8) X10*3/uL RBC 4.83 (4.60-5.80) X10*6/uL Hgb 15.0 (14.0-18.0) g/dl Hct 40.7 L (42.0-52.0) % MCV 84.3 (80.0-98.0) fL MCH 31.1 (27.0-33.0) pg MCHC 36.9 H (31.0-36.0) g/dl RDW 11.9 (11.0-16.0) % Plt Count 284 (160-400) X10*3/uL MPV 8.5 L (9.4-12.4) fL Immature Gran % (Auto) 0.3 (0.0-0.4) % Neut % (Auto) 47.6 (45-73) % Lymph % (Auto) 39.9 (20-40) % [place] % (Auto) 5.7 (2-11) % Eos % (Auto) 5.7 H (0-4) % Baso % (Auto) 0.8 (0-2) % Lymph # (Auto) 4.2 (1.2-4.9) X10*3/uL [place] # (Auto) 0.6 (0.1-1.2) X10*3/uL Eos # (Auto) 0.6 H (0.0-0.4) X10*3/uL Baso # (Auto) 0.1 (0.0-0.2) X10*3/uL Abs Immat Gran (auto) 0.03 (0.00-0.03) X10*3/uL Absolute Neuts (auto) 5.0 (2.0-8.3) x10*3/uL Absolute Nucleated RBC 0.000 (0.0-0.012) X10*3/uL Nucleated RBC % (auto) 0.0 (0.0-0.2) /100WBC Sodium 140 (135-145) mmol/L Potassium 3.8 (3.3-5.1) mmol/L Chloride 107 (96-108) mmol/L Carbon Dioxide 27 (22-29) mmol/L Anion Gap 10 L (12-20) BUN 13 (9-16) mg/dL Creatinine 0.80 (0.5-1.4) mg/dL Estim Creat Clear Calc 122.0 Estimated GFR > 60 Random Glucose 106 (60-115) mg/dL Calcium 9.3 (8.4-10.2) mg/dL Total Bilirubin 0.4 (0.0-1.0) mg/dL AST 23 (5-37) U/L ALT 20 (0-40) U/L Alkaline Phosphatase 64 (39-117) U/L Total Protein 7.3 (6.5-8.0) g/dL Albumin 4.2 (3.5-5.0) g/dL Lipase 33 (8-78) U/L Urine Color Yellow Urine Appearance Clear Urine pH 8.0 (5.0-9.0) Ur Specific [place] 1.010 (1.005-1.025) Urine Protein Negative (Neg-Trace) mg/dL Urine Glucose (UA) Negative (Negative) mg/dL Urine Ketones Negative (Negative) mg/dL Urine Blood Negative (Negative) Urine Nitrite Negative (Negative) Ur Leukocyte Esterase Negative (Negative) Influenza Type A (PCR) NEGATIVE (Negative) Influenza Type B (PCR) NEGATIVE (Negative) RSV RNA Qual (PCR) NEGATIVE (Negative) SARS-CoV-2 RNA (RT-PCR) NEGATIVE (Negative) Independent Interpretation I performed an independent interpretation of an: CT Scan Interpretation: Increased amount of stool on the right side Radiology Impression Discussion of test interpretation with radiology: I have reviewed the radiologist's reading. Discharge Plan Discharge Clinical Impression: Abdominal pain, Constipation Patient Disposition: Home, Self-Care Instructions: Constipation (ED), Acute Abdominal Pain (DC) Additional Instructions: Avoid constipation Drink plenty of fluids Stool softener as prescribed Follow with your PCP as needed Prescriptions: New polyethylene glycol 3350 [Miralax] 17 gram/dose powder 17 g PO DAILY Qty: 238 0RF No Action fluticasone furoate-vilanterol [Breo Ellipta] 200-25 mcg/dose blister with device 1 inh inhalation DAILY 30 Days Qty: 60 11RF Incruse Ellipta 62.5 mcg/actuation blister with device 1 inh inhalation DAILY 30 Days Qty: 30 11RF epinephrine 0.3 mg/0.3 mL auto-injector 1 IM NEEDED albuterol sulfate [ProAir HFA] 90 mcg/actuation HFA aerosol inhaler 2 puff inhalation Q4H fluticasone propionate 50 mcg/actuation spray,suspension 1 spray intranasal DAILY cyclobenzaprine 10 mg tablet 10 mg PO TID Qty: 20 0RF Rx Instructions: Flexeril will make you drowsy. Do not take it and drive. Do not take it and consume alcohol or other sedatives ketorolac 10 mg tablet 10 mg PO Q8H PRN (Reason: pain) Qty: 10 0RF Rx Instructions: do not use this medication with NSAIDs, only Tylenol if needed cyclobenzaprine 5 mg tablet 5 mg PO TID PRN (Reason: muscle spasm) Qty: 10 0RF Rx Instructions: do not drive or work after taking this medication. ondansetron 4 mg tablet,disintegrating 4 mg PO Q6H PRN (Reason: nausea and vomiting) montelukast 10 mg tablet 10 mg PO QAM dextroamphetamine-amphetamine [Adderall] 5 mg tablet 5 mg PO BID Rx Instructions: administer doses at least 4-6 hours apart ibuprofen 800 mg tablet 800 mg PO TID PRN epinephrine [EpiPen 2-Kit] 0.3 mg/0.3 mL auto-injector 0.3 mg IM Q10M PRN (Reason: anaphylaxis) 30 Days Qty: 2 6RF Rx Instructions: for 2 doses Print Language: Sinhala
[2024-10-02 02:55] LABS: MANUAL DIFF FLAG NO
[2024-10-02 02:57] LABS: Basophils Absolute Auto 0.1 X10*3/uL (0.0-0.2); Basophils Percent Auto 0.8 % (0-2); Eosinophils Absolute Auto 0.6 X10*3/uL (0.0-0.4); Eosinophils Percent Auto 5.7 % (0-4); Hematocrit 40.7 % (42.0-52.0); Imm Gran Abs Auto 0.03 X10*3/uL (0.00-0.03); Imm Gran Pct Auto 0.3 % (0.0-0.4); Lymphocytes Absolute Auto 4.2 X10*3/uL (1.2-4.9); Lymphocytes Percent Auto 39.9 % (20-40); Mean Corpuscular HGB Conc 36.9 g/dl (31.0-36.0); Mean Corpuscular Hemoglobin 31.1 pg (27.0-33.0); Mean Corpuscular Volume 84.3 fL (80.0-98.0); Mean Platelet Volume 8.5 fL (9.4-12.4); Monocytes Absolute Auto 0.6 X10*3/uL (0.1-1.2); Monocytes Percent Auto 5.7 % (2-11); Neutrophils Percent Auto 47.6 % (45-73); Platelet Count 284 X10*3/uL (160-400); Red Blood Count 4.83 X10*6/uL (4.60-5.80); Red Cell Distribution Width 11.9 % (11.0-16.0); White Blood Count 10.6 X10*3/uL (4.8-10.8)
[2024-10-02 03:12] LABS: Alanine Aminotransferase 20 U/L (0-40); Albumin Level 4.2 g/dL (3.5-5.0); Alkaline Phosphatase 64 U/L (39-117); Anion Gap 10 (12-20); Aspartate Amino Transferase 23 U/L (5-37); Bilirubin Total 0.4 mg/dL (0.0-1.0); Blood Urea Nitrogen 13 mg/dL (9-16); Calcium 9.3 mg/dL (8.4-10.2); Carbon Dioxide 27 mmol/L (22-29); Chloride 107 mmol/L (96-108); Estimated Glomerular Filt Rate > 60; Glucose Random 106 mg/dL (60-115); Lipase 33 U/L (8-78); Potassium 3.8 mmol/L (3.3-5.1); Sodium 140 mmol/L (135-145); Total Protein 7.3 g/dL (6.5-8.0)
[2024-10-02 03:32] LABS: Influenza A PCR NEGATIVE (Negative); Influenza B PCR NEGATIVE (Negative); Resp Syncy Virus RNA Qual PCR NEGATIVE (Negative); SARS COV2 PCR INHOUSE NEGATIVE (Negative)
[2024-10-02 04:10] LABS: Appearance Urine Clear; Color Urine Yellow; Glucose Urine UA Negative (Negative); Leukocyte Esterase Urine Negative (Negative); Nitrite Urine Negative (Negative); Urine Blood Negative (Negative); Urine Ketones Negative (Negative); Urine Protein Negative (Neg-Trace)
[2024-10-02] MEDS: bisacodyL 5 MG TABLET.DR 10 MG PO (04:29)
[2024-10-02] MEDS: Milk of Magnesia 30 ML ORAL.SUSP PO (04:29)
[2024-10-02 04:32] VITALS: BP 117/81; PULSE 87; RESP 18; TEMP 36.8; O2SAT 99
== END 2024-10-02 04:32 | disposition home or self-care (01) ==
PROVIDERS: Emergency Provider Internal Medicine; PCP Registered Nurse
DX: K59.00 Constipation, unspecified (principal); R10.2 Pelvic and perineal pain; R05.9 Cough, unspecified; Z79.899 Other long term (current) drug therapy; Z03.818 Encounter for observation for suspected exposure to other biological agents ruled out
CPT/HCPCS: 0241U; 36415; 71046; 74176; 80053; 81003; 83690; 85025; 99282; 99284

== ENCOUNTER → 2024-10-02 02:50 | Outpatient (BNV) | payer OTHER, SELFPAY | PROVIDERS: Emergency Provider Internal Medicine; PCP Registered Nurse; Visit Provider Radiology Diagnostic Radiology | DX: R10.10 Upper abdominal pain, unspecified (principal); R05.9 Cough, unspecified | CPT/HCPCS: 71046; 74176 ==